=== PATIENT | female | born 1960 | race Native Hawaiian/Other Pacific Islander ===

== ENCOUNTER 2016-08-19 10:02 | Outpatient (CLI) | payer OTHER ==
[~2016-08-19 10:02] MED LIST: LABETALOL200 MG PO; LISI20TA24 PO; SIMV40TA57 PO
== END 2016-08-19 23:02 | disposition home or self-care (01) ==
LOC: MAMMO 10:02
DX: Z12.31 Encounter for screening mammogram for malignant neoplasm of breast (principal)
CPT/HCPCS: G0202-TC

== ENCOUNTER 2019-04-14 12:16 | Outpatient (CLI) | payer OTHER ==
[2019-04-14 12:58] LABS: PLATELET COUNT 244 K/uL (152-353)
[2019-04-14 13:13] LABS: POTASSIUM 4.3 mmol/L (3.6-5.2)
== END 2019-04-14 23:01 | disposition home or self-care (01) ==
LOC: LABW 12:16
PROVIDERS: Internal Medicine Cardiovascular Disease
DX: Z79.899 Other long term (current) drug therapy (principal)
CPT/HCPCS: 36415; 80053; 80061; 83880; 85027

== ENCOUNTER 2019-05-13 07:40 | Outpatient (CLI) | payer OTHER | END 2019-05-13 20:39 | disposition home or self-care (01) | LOC: NM 07:40 | DX: I10 Essential (primary) hypertension (principal); R07.9 Chest pain, unspecified | CPT/HCPCS: 93306 ==

== ENCOUNTER 2019-05-19 07:50 | Outpatient (CLI) | payer OTHER ==
[~2019-05-19] VITALS: Ht 160 cm; Wt 77.1 kg
== END 2019-05-19 21:14 | disposition home or self-care (01) ==
LOC: NM 07:50
DX: R07.89 Other chest pain (principal); I10 Essential (primary) hypertension; E11.9 Type 2 diabetes mellitus without complications
CPT/HCPCS: 93306; A9500; J2785

== ENCOUNTER 2019-08-02 10:08 | Outpatient (CLI) | payer BC | END 2019-08-02 19:31 | disposition home or self-care (01) | LOC: MRI 10:08 | DX: G63 Polyneuropathy in diseases classified elsewhere (principal) ==

== ENCOUNTER 2019-09-06 14:18 | Outpatient (CLI) | payer BC | END 2019-09-06 19:22 | disposition home or self-care (01) | LOC: RAD 14:18 | DX: M54.16 Radiculopathy, lumbar region (principal) ==

== ENCOUNTER 2021-02-04 01:45 | Inpatient (IN) | payer BC ==
[2021-02-04] VITALS (12 sets, daily range): BP systolic 116–150; BP diastolic 55–81; TEMP 97.7–100.4; Ht 160 cm; Wt 81.0 kg
[~2021-02-04] VITALS: Ht 160 cm; Wt 81.0 kg
[2021-02-04 02:11] LABS: PLATELET COUNT 211 K/uL (152-353)
[2021-02-04 02:22] LABS: POTASSIUM 4.4 mmol/L (3.6-5.2); SODIUM 132 mmol/L (136-145)
[2021-02-04 02:36] LABS: PARTIAL THROMBOPLASTIN TIME 28.3 SECONDS (24.5-33.6)
--- NOTE | 2021-02-04 04:34 | NUR ---
PT. ARRIVED TO ROOM 1124 VIA STRETCHER FROM THE ER ON 8L/M SIMPLE MASK. ADMITTING DIAGNOSIS:COVID PNEUMONIA WTH HYPOXEMIA. PT. IS ALERT AND ORIENTED TIMES FOUR AND REACTIVE TO VERBAL STIMULI. PT. IS CURRENTLY ON 2L/M NC AFTER SATTING 99%. PT. IS SITTING UP IN A HIGH-FOWLERS POSITION WITH SIDE RAILS UP TIMES TWO WITH BED IN LOWEST POSITION. CALL LIGHT WITHIN REACH. ASSESSMENT PART 1 IS COMPLETE AND HOME MEDS PUT IN SYSTEM FOR MD TO REVIEW AND CONFIRM FOR USAGE. NO S/S OF ACUTE DISTRESS NOTED OR EXPRESSED BY PT. ORDERS REVIEWED AND SENT IN TO [facility] TO PROFILE INTO SYSTEM.
[2021-02-04] MEDS ORDERED: GRALISE600 MG PO (05:13)
[2021-02-04] MEDS ORDERED: MELOXICAM7.5 MG PO (05:14)
[2021-02-04] MEDS ORDERED: LOSA50TA PO (05:15)
[2021-02-04] MEDS ORDERED: HYDR25TA60 PO (05:16)
[2021-02-04] MEDS ORDERED: LABETALOL200 MG PO (05:17)
[2021-02-04] MEDS ORDERED: METF500T PO (05:17)
[2021-02-04] MEDS ORDERED: CITALOPRAM20 MG PO (05:19)
[2021-02-04] MEDS ORDERED: LIPITOR20 MG PO (05:19)
[2021-02-04] MEDS ORDERED: MELATONIN MAXIMU5 MG PO (05:21)
--- NOTE | 2021-02-04 05:33 | NUR ---
PATIENT ATTOVED VIA STRETHCHED. RESPIRTORY AT BEDSIDE. PATIENT CHANGED FROM SIMPLE MASK TO NC ON 2L. PATIENT DENIES ANY PAIN AND REPORTS DIARRHEA FOR THE PAST TWO DAYS. PATIENT IS ABLE TO AMBULATE TO BATHROOM. PATIEN LUNG SOUNDS ARE CLEAR EXCEPT FOR SOME DINISHMENT AT THE BASES
--- NOTE | 2021-02-04 14:06 | NUR ---
PHARMACY CALLED TO VERIFY HOME MEDS MD NOTIFED NEW ORDERS GIVEN TO D/C SIMVASTATIN.
--- NOTE | 2021-02-04 21:15 | NUR ---
PM ASSESSMENT COMPLETE AT THIS TIME. PM MEDS GIVEN AT THIS TIME. PT. TOLERATED WELL. PULMICORT AND COMBIVENT UTILIZED ALSO BY PT. AT THIS TIME. PT. GOT UP 2000 ON THE INCENTIVE SPIROMETER WITH ALL 10 INSPIRATIONS WITNESSED BY GAUGER CHIEF. PT. TOLERATING 2L/M NC AT THIS TIME WITH A SPO2 LEVEL OF 96% AND RESPIRATIONS 18. NO S/S OF ACUTE DISTRESS NOTED OR EXPRESSED BY PT. PT. SITTING UP IN BED IN A LOW-FOWLERS POSITION WITH SIDE RAILS UP TIMES TWO WITH BED IN LOWEST POSITON WITH CALL LIGHT WITHIN REACH. TELEMETRY, PULSE OXIMETRY AND IV ALL INTACT AND WORKING EFFECIENTLY. PT. BS WAS 271 AND COVERED WITH 4 U OF NOVOLOG. PT. DENIES ANY PAIN OR NEEDS AT THIS TIME. WILL MONITOR FOR ANY ACUTE CHANGES.
[2021-02-05] VITALS: BP 110/61; TEMP 97.7
[2021-02-05 04:00] VITALS: BP 111/54; TEMP 97.7
[2021-02-05 06:07] LABS: POTASSIUM 4.6 mmol/L (3.6-5.2)
[2021-02-05 06:08] LABS: PLATELET COUNT 215 K/uL (152-353)
[2021-02-05 08:00] VITALS: BP 119/60; TEMP 97.8
[2021-02-05 12:00] VITALS: BP 107/63; TEMP 98.2
[2021-02-05 20:00] VITALS: BP 124/53; TEMP 101.2
--- NOTE | 2021-02-05 21:19 | NUR ---
SHIFT ASSESSMENT COMPLETED. PATIENT NOTED ON 6 LPM VIA NC WITH SPO2 IN THE MID 80'S. RT IS AT THE BEDSIDE. PATIENT CHANGED TO VENTI MASK 50% AT 15LPM WITH SPO2 91%. IV PATENT AND INTACT INFUSING NS AT 50ML
[2021-02-06] VITALS (12 sets, daily range): BP systolic 100–147; BP diastolic 41–71; TEMP 97.7–98.4
--- NOTE | 2021-02-06 07:18 | NUR ---
Patient assisted twice throughout the night to the use the bathroom. Patient has very unsteady gait and generalized weakness. Patient gets very excerted and desats to 60% and usually take a few minutes to recover in the high 90's. Patient instructed to call for assistance when using the bathroom. Patient provided a bedside commode for safety.
--- NOTE | 2021-02-06 10:13 | NUR ---
PT HIGH FOWLERS POSITION WITH VENTI-MASK @10LPM. O2 SATS <90 WITH O2 IN USE. NAD NOTED. PT AMBULATES TO BEDSIDE COMMODE WITHOUT ASSISTANCE AND HAS STEADY GAIT, SUPERVISION RECOMMENDED. AM MEDS ADMINISTERED ORDERED AND PT TOLERATED WELL. PT ALERT AND DENIES ANY "DIZZINESS" WHEN AMBULATING TO BEDSIDE COMMODE. IV SITE TO RIGHT WRIST INTACT AND NO SWELLING OR REDNESS NOTED AND FLUSHES WITH NO DIFFICULTY. PTS APPETITE ADEQUATE. DENIES ANY PAIN OR DISCOMFORT. PT ED ON USING O2 WHEN UP AT BEDSIDE COMMODE TO ELIVIATE ANY RESP. DISTRESS.
--- NOTE | 2021-02-06 14:27 | NUR ---
PER DR HENDERSON PT WILL BE TRANSFERRING TO ICU FOR ONE ON ONE CONTINUOUS MONITORING OF O2 SATS. PT CONTINUES WITH 02 @ 10LPN VIA VENTI-MASK. PT AMBULATES TO BEDSIDE COMMODE WITH SUPERVISION TO ENSURE O2 IS ON AT ALL TIMES. PT DENIES ANY PAIN OR DISCOMFORT. PA=501 WITH 6U OF NOVOLOG COVERAGE.
--- NOTE | 2021-02-06 14:45 | NUR ---
REC'D PT FROM [facility] VIA WC AT THIS TIME. PT NOTED TO HAVE VENTI-MASK INTACT AT TIME OF TRANSFER. REPORT REC'D FROM [facility]. PT ASSISTED TO BED 1 IN ICU. PT CONNECTED TO TEL AND PULSE OX. PT REQUESTED TO USE BSC AND WAS ASSISTED TO IT. WHILE USING BSC PT'S SATS NOTED TO DECREASE TO 76 WITH HR OF 86. PT HAD REMIVED HER MASK AT THIS TIME. EXPLAINED TO HER SHE MUST NOT REMOVE HER OXYGEN AT ANY TIME. RESP AT BS AND PT ASSISTED BACK TO BED AND HIGH FLOW PLACED ON PT PER RESP AT THIS TIME. PT'S SATS NOTED TO RECOVER AND INCREASED TO 94-95% ON HIGH FLOW. WILL CONT TO MONITOR.
--- NOTE | 2021-02-06 15:02 | NUR ---
PT TRANSPORTED TO ICU VIA WHEELCHAIR AT 1445. REPORT GIVEN TO CORNELIA YODER.
--- NOTE | 2021-02-06 18:44 | NUR ---
PT SITTING UP IN BED EATING SUPPER. PT HAS RESTED WELL SINCE TRANSFERING TO ICU. REMAINS ON HIGH FLOW O2 AT 76% AT 40L. SPOKE WITH PT'S EARLIER AND BREIF UPDATE GIVEN. INFOMRED PT HE HAD CALLED AND SHE NOW HAS CELLPHONE AT BS
--- NOTE | 2021-02-06 19:20 | NUR ---
RESTING IN BED WITH EYES CLOSED, NO S/S OF PAIN OR DISTRESS NOTED, RESP RATE NONLABORED, HIGH FLOW NC IN USE FIO2 76% AND 40 LPM WITH O2 SAT 93-96%, 20G IV LOCK INTACT TO R WRIST WITH NO PROBLEMS NOTED TO SITE, SAND WHEELER IN USE WITH REGULAR RATE IN 70s, VITALS BEING MONITORED, WILL MONITOR CLOSELY, RAILS UP, BED IN LOW POISITION, CALL LIGHT IN REACH.
--- NOTE | 2021-02-06 21:14 | NUR ---
PT AROUSES TO FUELS SALES REPRESENTATIVE CALLING HER NAME AND DENIES ANY PROBLEMS AT THIS TIME, NO S/S OF DISTRESS NOTED. GAVE NIGHTLY MEDICATIONS, PT TOOK PO MEDS PER SELF WITH NO PROBLEMS. ENCOURAGED TO CALL NEEDED, RAILS UP, BED IN LOW POSITION, CALL LIGHT IN REACH.
--- NOTE | 2021-02-06 22:44 | NUR ---
RESTING IN POSITION OF COMFORT WITH EYES CLOSED, NO S/S OF PAIN OR DISTRESS NOTED, RESP RATE NONLABORED, O2 IN USE VIA HIGH FLOW NC WITH SAT OF 95%, IV LOCK INTACT TO R HAND, VITALS BEING MONITORED, RESIDENTIAL BUILDER IN USE WITH REGULAR RATE IN 60s. WILL MONITOR CLOSELY, RAILS UP, BED IN LOW POSITION, CALL LIGHT IN REACH.
[2021-02-07] VITALS (23 sets, daily range): BP systolic 107–160; BP diastolic 43–74; TEMP 64–98.8
--- NOTE | 2021-02-07 00:10 | NUR ---
PT AROUSES AND IS ORIENTED [employer] MAKER IS AT BEDSIDE, DENIES ANY PAIN/PROBLEMS, NO S/S OF ACUTE DISTRESS NOTED, RESP RATE 24 NONLABORED, O2 IN USE VIA HIGH FLOW NC FIO2 76% AND 40LPM WITH O2 SAT OF 96%, CARDIAC MONITIR IN USE WITH RATE 60-70s, 20G IV LOCK INTACT TO R WRIST WITH NO PROBLEMS NOTED TO SITE, VITALS BEING MONITORED. GAVE 2400 COMBIVENT INHALER PER ORDER PT TOLERATED WELL WITH SOME COUGHING NOTED AFTER. WILL MONITOR CLOSELY, RAILS UP, BED IN LOW POSITION, ENCOURAGED TO CALL NEEDED.
--- NOTE | 2021-02-07 02:15 | NUR ---
RESTING WITH EYES CLOSED IN POSITION OF COMFORT ON L SIDE, NO S/S OF PAIN OR DISTRESS NOTED, VITALS BEING MONITORED, O2 IN USE VIA HIGH FLOW NC, WILL MONITOR CLOSELY, RAILS UP, BED IN LOW POSITION.
--- NOTE | 2021-02-07 04:00 | NUR ---
PY AWAKE AND ORIENTED SITTING UP IN BED WITH NO S/S OF ACUTE DISTRESS NOTED, RESP RATE 22 NONLABORED, O2 VIA HIGH FLOW NC WITH FIO2 76% AND 40LPM, O2 SAT 94%-96%, 20G IV LOCK INTACT TO R WRIST WITH NO PROBLEMS NOTED TO SITE, VITALS BEING MONITORED/STABLE. ASSISTED PT TO AND FROM BSC DUE TO GENERALIZED WEAKNESS(STAND BY ASSIST), GAIT STEADY. PT URINATED 900ML CLEAR YELLOW URINE. BACK IN BED AT THIS TIME, NOTE PT DID HAVE SOME SOB WITH ACTIVITY BUT QUICKLY IMPROVED WITHIN A MINUTE OR TWO. WILL MONITOR CLOSELY, RAILS UP X3, BED IN LOW POSITION, ENCOURAGED TO CALL NEEDED.
[2021-02-07 05:32] LABS: PLATELET COUNT 249 K/uL (152-353)
[2021-02-07 05:51] LABS: POTASSIUM 4.6 mmol/L (3.6-5.2)
--- NOTE | 2021-02-07 06:02 | NUR ---
RESTING IN BED WITH EYES CLOSED, NO S/S OF PAIN OR DISTRESS NOTED, RESP RATE NONLABORED, O2 IN USE VIA HIGH FLOW NC WITH O2 SAT OF 97%, 20G IV LOCK INTACT TO R WRIST, HEATER ROOM HELPER IN USE RATE OF 60, VITALS BEING MONITORED, WILL MONITOR CLOSELY, RAILS UP X3, BED IN LOW POSITION.
--- NOTE | 2021-02-07 07:26 | NUR ---
PT REMOVED HIGHFLOW DURING SLEEP, SATS DECREASED 84%. PT AROUSES TO VERBAL, INSTRUCTED TO APPLY HIGHFLOW, PT STATES SHE DONT KNOW WHY SHE DID THAT.
--- NOTE | 2021-02-07 08:40 | NUR ---
SPOKE WITH DR CAMPBELL CONCERNING PT, UPDATE GIVEN. HELD AM BP MEDS.
--- NOTE | 2021-02-07 09:00 | NUR ---
PT EATING BREAKFAST AT THIS TIME, SATS AT 90%.
--- NOTE | 2021-02-07 09:27 | NUR ---
PT GAVE VERBAL CONSENT FOR INFORMATION TO BE GIVEN TO FAMILY, PT STATES THAT SHE WILL GIVEN FAMILY PASSWORD. FAMILY INCLUDES GARLAND AND SON BANDAR.
--- NOTE | 2021-02-07 09:30 | NUR ---
PT ON PHONE WITH , SHE STATES THAT SHE GAVE PASSWORD TO HIM
--- NOTE | 2021-02-07 10:00 | NUR ---
PT AROUSES TO VERBAL, INSTRUCTEDD PT ON IMPORTANCE OF USING IS Q1, VOICED UNDERSTANDING
--- NOTE | 2021-02-07 11:00 | NUR ---
PT RESTING AT THIS TIME, NO S/S OF DISTRESS NOTED
--- NOTE | 2021-02-07 12:32 | NUR ---
PT GIVEN SUPPLIES TO BRUSH HAIR AND TEETH
--- NOTE | 2021-02-07 13:24 | NUR ---
TALKING ON THE PHONE WITHKEILY
--- NOTE | 2021-02-07 14:50 | NUR ---
USING IS AT THIS TIME
--- NOTE | 2021-02-07 16:00 | NUR ---
RESTING AT THIS TIME.
--- NOTE | 2021-02-07 18:00 | NUR ---
NO C/O AT PRESENT. PTS GIVEN UPDATE ON PTS STATUS. USING INCENT MACEY AT PRESENT.
[2021-02-08] VITALS (22 sets, daily range): BP systolic 106–163; BP diastolic 55–90; TEMP 98–99.1
--- NOTE | 2021-02-08 | NUR ---
PY CONTINUES TO REST WITH EYES CLOSED. USING HIGH FLOW OXYGEN.
--- NOTE | 2021-02-08 03:04 | NUR ---
PT UOB WITH MINIMAL ASSISTANCE TO USE BSC. VOIDED 1000 ML OF URINE. BACK TO BED AND 02 SATS REMAINED AT 95 PERCENT.
--- NOTE | 2021-02-08 03:56 | NUR ---
FEBRUARY 07, 2021. PM ASSESSMENT COMPLETED. PT ATE HER SALAD AND DRANK 40 ML OF SODA. PT HAS NO COMPLAINTS OF PAIN OR DISCOMFORT. PT USING HIGH FLOW OXYGEN AT 40 PERCENT 02 AND 75L. 21:00 PM PATIENT MEDICATIONS GIVEN. BLOOD SUGAR IS 105. VITAL SIGNS STABLE. PT RESTING WITH EYES CLOSED.
--- NOTE | 2021-02-08 04:22 | NUR ---
CONTINUES TO REST AND USE HIGH FLOW OXYGEN ORDERED.
[2021-02-08 06:31] LABS: PLATELET COUNT 297 K/uL (152-353)
--- NOTE | 2021-02-08 06:41 | NUR ---
0620 LAB AT BEDSIDE, DRAWING BLOOD
--- NOTE | 2021-02-08 06:52 | NUR ---
LABETALOL 25 WAS NOT GIVEN LAST PM. THIS ORDER WAS DISCONTINUED. LOPRESSOR WAS HELD BECAUSE OF HR IN THE 50'S AND BP BEING MONITORING.
[2021-02-08 07:02] LABS: POTASSIUM 4.8 mmol/L (3.6-5.2)
--- NOTE | 2021-02-08 09:09 | NUR ---
02/08/2021 0900 PT GARLAND CALLED TO ICU TO CHECK ON .TOLD HIM PT STATES SHE IS FEELING GOOD THIS MORNING ASKING ABOUT BREAKFAST.WEARING BIPAP MAINTANING SAT AT 96 PERCENT.NAD NOTED.
--- NOTE | 2021-02-08 10:06 | NUR ---
02/08/21 1005 RESTING QUEITLY HF POSTITION RESP EVEN NONLABORED NADDNOTED.OXYGEN SATURATION 93 PERCENT.
--- NOTE | 2021-02-08 11:27 | NUR ---
02/08/21 1100 PT AWAKE USING IS 1500 TOLERATING WELL OXYGEN SATURATION 92 PERCENT. 02/08/2021 1130 IN TO SPEAK WITH PLAN OF CARE.CALL LIGHT WITHIN REACH.CC
--- NOTE | 2021-02-08 14:00 | NUR ---
ASSISTED PT UP TO BSC. URINE VOID AND LOOSE BM.
--- NOTE | 2021-02-08 14:19 | NUR ---
02/08/21 1420 AWAKE TALKING ON PHONE WITH FAMILY OXYGEN SATURATION 93 PERCENT.
--- NOTE | 2021-02-08 16:52 | NUR ---
02/08/21 1650 OXYGEN SATURATION LOW 80'S IS GIVEN AND USED TO 1400 COUGHING STRONG COUGH.POSTIONED TO HF.OXYGEN RECHECKED AFTER CHANGING FINGERS.OXYGEN REMAINED IN 70-80.RESPIRATORY NOTIFED AND CAME IN.POSTIONED TO RT SIDE PT COUGHING WITH STRONG COUGH.HIGH FLOW INCREASED FROM 76 PERCENT TO 100 PERCENT.45 LITERS.CC
--- NOTE | 2021-02-08 17:23 | NUR ---
02/08/21 1725 IS USED IS UP TO 14OO COUGHING SAT INCREASE FROM 88 TO 92 PERCENT.CC
--- NOTE | 2021-02-08 17:29 | NUR ---
PT FIO2 INCREASED TO 100% AND LITER FLOW UP TO 45LNC. DUE TO PT SPO2 DROPPING IN THE 80s. SPO2 NOW IS IN MID TO HIGH 95-97%.
--- NOTE | 2021-02-08 18:22 | NUR ---
DR JAQUEZ GIVEN UPDATE ON PT STATUS, REPORTED THAT PT WAS HAVING SOME ANXIETY, INCREASE IN 02 100%.
--- NOTE | 2021-02-08 21:48 | NUR ---
INCREASED LITER FLOW TO 50 L/M. SPO2 99%
--- NOTE | 2021-02-08 23:07 | NUR ---
PT VOIDED IN BED. NEW ORDER RECEIVED FOR NO CATHETAR. PT WITH INCREASED HEART RATE AND RESPIRATIONS. 16 CHINESE NO INSERTED USING STERILE TECHNIQUE. PER JEANA BARRETT RN. PT IMMEDIATELY HAD YELLOW URINE RETURN. PT WAS GIVEN TYLENOL 650 MG PO FOR ELEVATED TEMPERATURE. WILL MONITOR.
--- NOTE | 2021-02-08 23:58 | NUR ---
PT HAD EPISODES OF DECREASE 02 SATS. RESP AT BEDSIDE. INCREASED O2 T0 60 PERCENT. NRM APPLIED.
[2021-02-09] VITALS (23 sets, daily range): BP systolic 93–180; BP diastolic 40–91; TEMP 99.8–101
--- NOTE | 2021-02-09 01:24 | NUR ---
TEMPERATURE RECHECK 101.9. BLOOD CULTURES X 2 ORDERED.
--- NOTE | 2021-02-09 04:14 | NUR ---
PATIENT REPOSITIONED UP IN THE BED AND ON TO HER LEFT SIDE X4 PERSON MAX ASSIST. SPO2 AT 94%.
--- NOTE | 2021-02-09 04:54 | NUR ---
PT REPOSITIONED TO HER LEFT SIDE. O2 SATS VARY FROM 88 TO 93 PERCENT. TEMP WAS RECHECKED 101.0 AX.
[2021-02-09 05:19] LABS: PLATELET COUNT 271 K/uL (152-353)
--- NOTE | 2021-02-09 05:26 | NUR ---
RECHECKED TEMP 99.1.
--- NOTE | 2021-02-09 06:00 | NUR ---
PATIENT NOTED WITH A LOW BLOOD PRESSURE OF 83/40 ON THE MONITOR. MANUAL BLOOD PRESSURE READING 82/38. CALLED AND HE GAVE ORDER FOR A 1 LITER BOLUS OF NS.
--- NOTE | 2021-02-09 06:12 | NUR ---
IV 20G TO THE RIGHT WRIST FLUSHED AND IT WAS NOTED INFILTRATED. IV REMOVED WITH TIP INTACT. IV 20G TO THE LEFT HAND X 1 ATTEMPT STARTED W/O DIFFICULTY.
--- NOTE | 2021-02-09 06:24 | NUR ---
NS BOLUS STARTED AT THIS TIME.
--- NOTE | 2021-02-09 07:14 | NUR ---
PATIENTS CURRENT BLOOD PRESSURE READING 111/45 WITH MAP 65.
--- NOTE | 2021-02-09 16:32 | NUR ---
DR CAMPBELL IN ICU AT THIS TIME. PT RESTING IN BED IN LOW FOWLERS POSITION NO ACUTE DISTRESS NOTED. ABG RESULTS REPORTED TO MD PER RESP
--- NOTE | 2021-02-09 16:45 | NUR ---
DR CAMPBELL SPOKE WITH SON AND PT ABOUT INTUBATION AND BOTH AGRED AND VERBALZIED UNDERSTANDING. 1710 20G RT AC PLACED 1718 DEFIB PADS PLACCED ON PT 1721 16 FR NGT PLACED RT NARE 1737 VERSED 5MG GIVEN IV PER DR CAMPBELL 1740 YONG 70MG IVP GIVEN PER 174 BOUGIE ATEMPTED PER 174 7.5ET TUBE PLACED PER DR CAMPBELL 23 AT LIPLINE 1745 VERSED DRIP STARTED AT 2ML 174 DIPRIVAN DRIP SATRTED AT THIS TIME PER PROTOCOL 182 AKHIL DDRIP INCREASED TO 20MCG 182 ORDERS REC'D FOR PICC LINE PLACMENT OMAR LOCKE INFORMED AND AT BS
--- NOTE | 2021-02-09 19:42 | NUR ---
SHIFT ASSESSMENT COMPLETED AT THIS TIME. PATIENT IS RESTING QUIELTY ON THE VENT WITH NO ACUTE DISTRESS NOTED. FIO2 100% VIA VENT. ELIDA AT THE BEDSIDE PLACING PICC LINE.
--- NOTE | 2021-02-09 19:47 | NUR ---
X-RAY AT THE BEDSIDE DOING CHEST X-RAY FOR PICC LINE PLACEMENT.
--- NOTE | 2021-02-09 20:10 | NUR ---
RESPIRATORY DECREASED FIO2 TO 95%, O2 SAT IN 90s, NO ACUTE DISTRESS NOTED, RESP RATE NONLABORED, REMAINS ON VENT, 20G IV INTACT TO R AC AND 20G IV INTACT TO L HAND, PICC INTACT TO L UPPER ARM, NO PATENT, VITALS BEING MONITORED, HANDS AND FEET ELEVATED ON PILLOWS DUE TO EDEMA, RAILS UP, BED IN LOW POSITION, CALL LIGHT IN REACH.
[2021-02-10] VITALS (65 sets, daily range): BP systolic 82–145; BP diastolic 41–513; TEMP 97–104.2
--- NOTE | 2021-02-10 00:45 | NUR ---
RESP DECREASED FIO2 TO 90%, O2 SAT 98%. PT RESTING WITH EYES CLOSED, NO S/S OF PAIN OR DISTRESS NOTED, RESP RATE NONLABORED, REMAINS ON VENT 23 AT LIP, NG TUBE INTACT TO R NARE WITH LOW INTERMITTEN SUCTION, PICC INTACT TO L UPPER ARM, 16F NO PATENT, 20G IV INTACT TO R AC AND L HAND, VITALS BEING MONITORED, FEET AND HANDS ELEVATED ON PILLOWS. RAILS UP, BED IN LOW POSITION.
--- NOTE | 2021-02-10 01:07 | NUR ---
VENT FIO2 DECREASED TO 85% BY RESPIRATORY. O2 SAT REMAINS IN 90s. NO S/S OF ACUTE DISTRESS OR RESP DISTRESS AT THIS TIME, BOTH IV SITES INTACT, NO PATENT, NG TUBE INTACT TO R NARE LIS, PICC INTACT TO L UPPER ARM, WILL MONITOR CLOSELY, RAILS UP, BED IN LOW POSITION.
--- NOTE | 2021-02-10 01:33 | NUR ---
GAVE TYLENOL 1000MG IV PRN FOR AX TEMP OF 101.6 AT THIS TIME. PT ONLY HAS SHEET ON HER. NO ACUTE DISTRESS NOTE.
--- NOTE | 2021-02-10 02:30 | NUR ---
RECHECK OF TEMP SINCE TYLENOL GIVEN. AX TEMP IS NOW 100.2 , NO REACTIONS NOTED. RESTING WITH EYES CLOSED, NO DISTRESS NOTED.
--- NOTE | 2021-02-10 05:25 | NUR ---
0508- DECREASED FIO2 TO 80% satS 100% AND MAINTAINING @ THIS TIME.
--- NOTE | 2021-02-10 06:00 | NUR ---
DIPRIVAN DRIP INCREASED TO 40MCG/KG/MIN DUE TO PT BREATHING OVER VENT AND MOVING. WILL MONITOR CLOSELY.
[2021-02-10 06:26] LABS: PLATELET COUNT 163 K/uL (152-353)
[2021-02-10 06:45] LABS: POTASSIUM 3.7 mmol/L (3.6-5.2)
--- NOTE | 2021-02-10 06:57 | NUR ---
RESTNG WITH EYES CLOSED, NO S/S OF PAIN OR DISTRESS NOTED, RESP RATE 26 NONLABORED, O2 SAT 98%, PLSQL DEVELOPER IN USE WITH RATE OF 93, FEET AND HANDS ELEVATED ON PILLOWS HOB IN SEMI-AREVALO'S POSITION, WILL MONITOR CLOSELY,RAILS UP, BED IN LOW POSITION.
--- NOTE | 2021-02-10 08:23 | NUR ---
DIPRIVAN INCREASED TO 45 MCG/KG/MIN BY DL FERNANDO RN
--- NOTE | 2021-02-10 08:32 | NUR ---
VERSED INCREASED TO 0.09 MG/KG/HR BY DL FERNANDO RN
--- NOTE | 2021-02-10 09:41 | NUR ---
VERSED INCREASED TO 0.1MCG DUE TO RR 42, HR 111; DIPRIVAN INCREASED 45MCG/KG 0945 RESP AT BS RATE DECREASED TO 20 ON VENT 0947 DIPRIVAN INCRASED TO 50MCG/KG 0949 VERSED INCREASED TO 0.15MG/KG 0951 VERSED DECREASED TO 0.1MG/KG
--- NOTE | 2021-02-10 10:10 | NUR ---
PT'S SON, BANDAR LARIOS, CALLED FOR AN UPDATE ON HIS MOTHER. UPDATE GIVEN ALL QUESTIONS ANSWERED AT THIS TIME.
--- NOTE | 2021-02-10 10:35 | NUR ---
RESP AT BS OBTAINING ABG
--- NOTE | 2021-02-10 11:25 | NUR ---
PT'S HANDS BILAT NOTED TO BE COOL TO TOUCH AND PALE IN COLOR. BILAT FEET ALSO NOTED TO BE COOL TO TOUCH AND GREAT TOE ON LEFT FOOT NOTED TO HAVE DARK AREAS. PEDAL PULSES POSITIVE TO BOTH LOWER EXT. DR CAMPBELL AWARE AMD AT BS AT THIS TIME. PT'S LEFT FOOT NOTED TO BE TURNED INWARD AT THIS TIME. PT'S FACE FLUSHED AND WARRM TO TOUCH. NO TEMP NOTED.
--- NOTE | 2021-02-10 11:30 | NUR ---
DR CAMPBELL IN ICU AT THIS TIME. INFORMED HER PT'S RESP REMAINED 34-40 DESPITED ADJSUTMENTS TO VENT SETTINGS PER RESP. PT'S SEDATION MEDS BOTH INCREASED PER PROTOCOL WITH NO CHANGES NOTED TO RESP. NEW ORDERS REC'D TO GIVE MORPHINE 1MG IV AT THIS TIME.
--- NOTE | 2021-02-10 12:49 | NUR ---
PT NOTED TO BE FLUSED TO FACE AND CHEST AND WARM TO TOUCH. TEMP TAKEN AX AND NTOED TO BE 103.0 AX. BED LINENS REMOVED AND COOL CLOTHES APPLIED TO HEAD AND BILAT AX . DR CAMPBELL INFORMED. 1255 DR CAMPBELL AT BS
--- NOTE | 2021-02-10 13:33 | NUR ---
0845- PT IS AGITATED AND FIGHTING WITH VENT. RR BETWEEN 35-40. HR 114, SPO2 BETWEEN 89-92%. RT PLACED PT IN SIMV MODE TO HELP WITH PT TOLERABILITY WITH PS-10. ALL OTHER SETTINGS ARE THE SAME. WILL CONTINUE TO MONITOR PT. 0920-PT RR IS AT 45, BREATHING OVER VENT QUITE A BIT. RT DECREASED VENT RATE TO 20.
--- NOTE | 2021-02-10 13:45 | NUR ---
TEMP AX NOTED TO BE 104.4. AWAITING FOR PRN IV TYELENOL TO TAKE EFFECT WILL CONT TO ACCESS 1415 TEMP CHECKCED AND NOTED TO BE 102.4 AX COOL CLOTHES STILL INTACT WILL CONT TO MONITOR.
--- NOTE | 2021-02-10 14:21 | NUR ---
TEMP 102.7AX
--- NOTE | 2021-02-10 14:50 | NUR ---
BP 93/44 HR 91, RR 18, O2 AT 97%. PPT PLACED IN [place] POSITION 1457 BP 82/41 HR 90 O2 95% DR CAMPBELL NOTIFIED OF DECREASE IN BP 1500 BP92/42 HR 89 02 93% 1503 DIPRIVAN DECREASED TO 30 1505 VERSED 0.08MCG/KG O2 DECREASED 89%; RESP AT BS 1510 DR CAMPBELL AT BS 1512 BP 101/44 HR 89 O2 92% RR 30
--- NOTE | 2021-02-10 17:19 | NUR ---
1450-INCREASED FIO2 TO 100% DUE TO SPO2 AT 86-88%. PT HAS LOW BP. 1700-DECREASED FIO2 TO 90% SPO2 AT 91%
--- NOTE | 2021-02-10 19:45 | NUR ---
SHIFT ASSESSMET COMPLETED. PATIENT IS RESTING QUIELTY ON THE VENT WITH THE FOLLOWING SETTINGS TV 500ML, PRESSURE SUPPORT 10, RATE 10, FIO2 100%. NS AT 125 ML/HR, DIPIRVAN 30 MCH/KG/HR, VERSED 0.08MCG MCG/KG/HR. PICC LINE TO THE LEFT UPPER ARM IS PATENT AND INTACT. 20G TO THE LEFT HAND IS INFUSING W/O DIFFICULTY. 16F.NO IS INTACT TO BSD. BED IS LOCKED IN LOW POSITION, SIDE RAILS UP X2.
--- NOTE | 2021-02-10 21:15 | NUR ---
PATIENT REPOSITIONED UP IN THE BED W/O DIFFICULTY.
--- NOTE | 2021-02-10 22:09 | NUR ---
PATIENT REPOSITIONED OF HER BACK AND ELEVATED BOTH LOWER EXTREMITIES. TEMP 97.9 AXILLARY. SPO2 98%
[2021-02-11] VITALS (66 sets, daily range): BP systolic 19–179; BP diastolic 43–90; TEMP 97–100
--- NOTE | 2021-02-11 02:15 | NUR ---
ORAL CARE PROVIDED. PATIENT REPOSITIONED ON TO HER LEFT SIDE.
--- NOTE | 2021-02-11 03:20 | NUR ---
ORAL CARE PROVIDED.
--- NOTE | 2021-02-11 04:06 | NUR ---
PATIENT NOTED COUGHING OVER THE VENT WITH O2 SATS 77%. PATIENT BROUGHT UP TO SUPINE POSITION AND 100% 02 (2 MINUTES) ON THE VENT AND SUCTION HER ORAL CAVITY AROUND ET TUBE AND THICK SECRETIONS NOTED. PATIENT ALSO IN LINE SUCTIONED TWICE WITH SOME CLEAR SECRETIONS NOTED ON RETURN. PATIENTS 02 SATS INCREASED TO 91% AND AFTER SEVERAL MINUTES 02 SATS INCREASED TO 99%.
--- NOTE | 2021-02-11 05:15 | NUR ---
PATIENT MONITOR GOING OFF AND NOTED HER SATS DECREASED TO 79% AND RR INCREASING TO 42. PROPOFOL INCREASED TO 50 MCG. PATIENT STILL NOTED CLAMPING DOWN ON TUBE. RT AT THE BEDSIDE GIVING 100% O2 VIA VENTILLATOR WITH NO RESPONSE.
--- NOTE | 2021-02-11 05:20 | NUR ---
CALLED IN THE ER TO GET ORDER FOR VECURONIUM. ORDER PLACED AT THIS TIME.
--- NOTE | 2021-02-11 05:30 | NUR ---
AT THE BEDSIDE.
--- NOTE | 2021-02-11 05:33 | NUR ---
02 SATS 55% WITH RT BAGGING VIA ET TUBE.
--- NOTE | 2021-02-11 05:39 | NUR ---
G REPORTED TO WITH NO ADJUSTMENTS MADE ON VENT SETTINGS.
--- NOTE | 2021-02-11 05:42 | NUR ---
RADIOLOGY AT THE BEDSIDE DOING CHEST X-RAY.
--- NOTE | 2021-02-11 05:42 | NUR ---
VECURONIUM BOLUS 0.08MCG GIVEN PER .
--- NOTE | 2021-02-11 05:47 | NUR ---
RESPIRATORY PLACED PATIENT BACK ON THE VENT
--- NOTE | 2021-02-11 05:50 | NUR ---
02 SATS INCREASED TO 73% WITH VENT SETTING AT FIO2 100%.
--- NOTE | 2021-02-11 05:52 | NUR ---
02 SATS INCREASED TO 80%. VENT SETTINGS: TV 500, RATE 25, PEEP 13, FIO2 100%.
--- NOTE | 2021-02-11 05:55 | NUR ---
02 SAT INCREASED TO 84%.
--- NOTE | 2021-02-11 05:58 | NUR ---
RESPIRATORY AT BEDSIDE FOR ABG
--- NOTE | 2021-02-11 06:00 | NUR ---
02 SAT INCREASED TO 87%. NO VENT CHANGES AT THIS TIME.
--- NOTE | 2021-02-11 06:02 | NUR ---
02 SATS INCREASING TO 89%. NO VENT SETTING CHANGES NOTED AT THIS TIME.
--- NOTE | 2021-02-11 06:03 | NUR ---
SON AT THE BEDSIDE PER .
--- NOTE | 2021-02-11 06:03 | NUR ---
SON AT BEDSIDE PER DR. MTAA VERBAL ORDER, SON IN FULL PPE INCLUDING N-95 MASK AND IS AWARE OF RISKS, , DR TALKING WITH SON ABOUT STATUS OF PT. 96 HEART RATE, RESP RATE 25, O2 SAT 94% AT THIS TIME.
--- NOTE | 2021-02-11 06:05 | NUR ---
02 SAT INCREASED AT 92%.
--- NOTE | 2021-02-11 06:10 | NUR ---
PATIENT BECAME VERY AGITATED,BITING TUBE SPO2 DECREASED TO 45%. VENT SETTINGS TURNED UP WITH NO CHANGE IN SP02, RT TOOK PATIENT OFF OF VENT AND AMBUED, SPO2 STAYED IN THE 50S FOR 10 MINUTES, PLACED BACK ON VENT, 100%, RATE 25 PEEP INCRASED TO 13, SPO2 SLOWLY INCREASED TO 94. THIS WAS OVER A PERIOD OF 1 HOUR
--- NOTE | 2021-02-11 06:30 | NUR ---
SATS AND VITAL SIGNS 104/50, HR-92, RR-25,SPO2 98%.
--- NOTE | 2021-02-11 08:10 | NUR ---
REASSESSED PT'S TRAIN OF FOUR AT THIS TIME. NO TWITCHES NOTED AT PT'S BASELINE OF 20mA. INCREASED TO TO 30mA, STILL NO TWITCHES. VEC NOTED TO BE INFUSING AT THIS TIME VIA IV PUMP.
--- NOTE | 2021-02-11 08:20 | NUR ---
DL FERNANDO RN STOPPED VEC AT THIS TIME AND NOTIFIED . NO FURTHER ORDERS.
--- NOTE | 2021-02-11 08:37 | NUR ---
VERSED INCREASED TO 0.09MG/KG/HR BY DL FERNANDO RN.
--- NOTE | 2021-02-11 09:33 | NUR ---
ORDER GIVEN TO GIVE LEVOPHED IF MAP <65
--- NOTE | 2021-02-11 09:34 | NUR ---
REC'D ORDER FROM DR. CAMPBELL TO GIVE DECADRON 8MG IV AT THIS TIME. TEMP 99.5 AX
--- NOTE | 2021-02-11 09:53 | NUR ---
PHUONG, CAFETERIA CASHIER AT BEDSIDE ABG AND AM LABS OBTAINED AT THIS TIME.
[2021-02-11 09:59] LABS: PLATELET COUNT 100 K/uL (152-353)
--- NOTE | 2021-02-11 09:59 | NUR ---
DR. CAMPBELL AT BEDSIDE.
--- NOTE | 2021-02-11 10:00 | NUR ---
2 AMP BICARB GIVEN PER MD ORDERS.
--- NOTE | 2021-02-11 10:11 | NUR ---
LEVOPHED DRIP RESTARTED PER PROTOCOL BY DL FERNANDO RN.
--- NOTE | 2021-02-11 10:13 | NUR ---
DIPRIVAN INCREASED TO 50 MCG/KG/MIN AT THIS TIME.
[2021-02-11 10:16] LABS: POTASSIUM 3.7 mmol/L (3.6-5.2)
--- NOTE | 2021-02-11 10:18 | NUR ---
LEVOPHED DRIP STOPPED AT THIS TIME BY DL FERNANDO RN. BP 160/75 O2 95%.
--- NOTE | 2021-02-11 10:19 | NUR ---
CAT Z, RT AT BEDSIDE PT'S TV INCREASED TO 550 PEEP INCREASED TO 15
--- NOTE | 2021-02-11 10:26 | NUR ---
BP 101/54 MAP 66
--- NOTE | 2021-02-11 10:34 | NUR ---
LEVOPHED DRIP RESTARTED AT THIS TIME BY DL FERNANDO RN
--- NOTE | 2021-02-11 10:34 | NUR ---
DR. CAMPBELL AT PT'S BEDSIDE AT THIS TIME WITH DL FERNANDO RN. PT'S BP NOTED TO BE 88/42, PT CURRENTLY IN [place], REC'ING NS BOLUS PER MD ORDERS. ORDERS REC'D TO START LEVOPHED DRIP. LEVOPHED DRIP STARTED AT THIS TIME VIA IV PUMP PER PROTOCOL AT 8 MCG/MIN AT THIS TIME BY DL FERNANDO RN.
--- NOTE | 2021-02-11 10:38 | NUR ---
PT'S BP REMAINS LOW AT 90/49, REC'D ORDERS PER TO INCREASE LEVOPHED DRIP TO 12MCG/MINUTE AT THIS TIME. LEVOPHED DRIP INCREASED TO 12MCG/MIN BY DL FERNANDO RN.
--- NOTE | 2021-02-11 10:45 | NUR ---
PT'S BP 174/[address] CAMPBELL AT BEDSIDE REC'D ORDERS TO STOP LEVOPHED DRIP AT THIS TIME. LEVOPHED DRIP STOPPED BY DL FERNANDO RN AT THIS TIME PER MD ORDERS.
--- NOTE | 2021-02-11 10:46 | NUR ---
PT'S BP 106/47 MAP 64
--- NOTE | 2021-02-11 10:47 | NUR ---
BP 95/45 MAP 61
--- NOTE | 2021-02-11 10:50 | NUR ---
RESTARTED LEVOPHED AT THIS TIME PER MD ORDERS. DR. CAMPBELL AT BEDSIDE. LEVOPHED DRIP STARTED BY DL FERNANDO RN AT 8 MCG/MIN VIA IV PUMP.
--- NOTE | 2021-02-11 10:53 | NUR ---
LEVOPHED DECREASED TO 6 MCG/MIN. MAP 108
--- NOTE | 2021-02-11 10:58 | NUR ---
LEVOPHED DECREASED TO 4 MCG/MIN. MAP 97
--- NOTE | 2021-02-11 11:00 | NUR ---
BP 135/60 MAP 85. LEVOPHED AT 4 MCG/MIN
--- NOTE | 2021-02-11 11:10 | NUR ---
1030- PER DR CAMPBELL AT PT BEDSIDE, CHANGED VT TO 550, INCREASED PEEP TO 15. SPO2 AT 95%. IN LINE SX ATTEMPTED AT THIS TIME WELL WITH NO RETURN.
--- NOTE | 2021-02-11 13:19 | NUR ---
PT'S SON BANDAR LARIOS CALLED FOR AN UPDATE ON PT. UPDATE GIVEN BY DL FERNANDO RN AT THIS TIME. ALL QUESTIONS ANSWERED.
--- NOTE | 2021-02-11 15:16 | NUR ---
LEVOPHED DECREASED TO 2MCG/MIN BY DL FERNANDO RN
--- NOTE | 2021-02-11 15:45 | NUR ---
LEVOPHED DECREASED TO 1 MCG/MIN. BP 163/69 MAP 97
--- NOTE | 2021-02-11 16:19 | NUR ---
LEVOPHED STOPPED AT THIS TIME BP 176/70 MAP 110
--- NOTE | 2021-02-11 16:30 | NUR ---
BP 123/52 MAP 86, LEVOPHED RESTARTED AT 2 MCG/MINUTE VIA IV PUMP . GILMA RT AT BEDSIDE PEEP DECREASED TO 13.
--- NOTE | 2021-02-11 17:00 | NUR ---
LEVOPHED DRIP STOPPED AT THIS TIME. BP 179/75 MAP 19
--- NOTE | 2021-02-11 17:30 | NUR ---
DR. CAMPBELL AT BEDSIDE AT THIS TIME. NO NEW ORDERS REC'D.PT BP 135/59 MAP 87. PT STABLE AT THIS TIME.
--- NOTE | 2021-02-11 17:47 | NUR ---
1630- DECREASED PEEP TO 13. SPO2 AT 100% 1730 DECREASED FIO2 TO 90%. SPO2 AT 100%
--- NOTE | 2021-02-11 18:30 | NUR ---
PT REMAINS STABLE AT THIS TIME BP 150/68 MAP 96.
--- NOTE | 2021-02-11 20:16 | NUR ---
SHIFT ASSESSMENT COMPLETED. NO ACUTE DISTRESS NOTED. PATIENT BLOOD PRESSURE STABLE AT 140/70 WITH ROHINI 98.
--- NOTE | 2021-02-11 23:16 | NUR ---
PATIENT REPOSITIONED UP IN THE BED.
[2021-02-12] VITALS (31 sets, daily range): BP systolic 122–197; BP diastolic 56–82; TEMP 97.5–98.7
--- NOTE | 2021-02-12 04:19 | NUR ---
PATIENT BLOOD PRESSURE 145/63, ROHINI 94. NO ACUTE DISTRESS NOTED.
[2021-02-12 04:26] LABS: PLATELET COUNT 102 K/uL (152-353)
[2021-02-12 04:52] LABS: POTASSIUM 3.9 mmol/L (3.6-5.2)
--- NOTE | 2021-02-12 06:24 | NUR ---
PATIENT REPOSITIONED AND SHE WAS NOTED WITH A LARGE YELLOWISH/BROWN FOUL BM. PATIENT CLEANED AND EXCORIATION NOTED IN THE PERINEUM. CALMOSEPTINE APPLIED AT THIS TIME.
--- NOTE | 2021-02-12 08:00 | NUR ---
ET TUBE IN PLACE 7.5 AND 23 AT LIP. SIMV MODE TV 550, PS 10RATE 25 FIO2 90%. SATS 98-100%. NGT TO RT NARE TO LIS, 16FR NO TO BSD PATENT AND 150 ML URINE OBSERVED IN COLLECTION BAG. PICC TO AFIA, 20GLH, 20GRAC PATENT AND SITE WNL. DIPROVAN AND VERSED INFUSING PER MD ORDERS. EXCORIATION NOTED TO BUTTOCKS BARRIER CREAM APPLIED. 1130 CONSENT FOR CONV PLASMA OBTAINED VIA TELEPHONE BY BANDAR LARIOS (SON) UPDATE GIVEN TO BANDAR ON THIS PT AT THIS TIME. NO NEW CONCERNS VOICED BY FAMILY. 1305 CONV PLASMA INFUSING WITH NO S/S OF ADVERSE REACTION 1330 VENT SETTINGS ADJUSTED PER RT 1345 CONV PLASMA COMPLETED WITH NO ADVERSE REACTIONS AT THIS TIME. NEW ORDER GIVEN FOR GLUCERNA 1.5 1 CAN TID VIA NGT GIVEN. PT HAS BEEN TURNED AND REPOSTIONED THROUGHOUT THIS SHIFT. 1812 VENT SETTINGS ADJUSTED PER RT. PT TOLERATED THE CHANGES
--- NOTE | 2021-02-12 13:24 | NUR ---
TURNED O2 TO 80%
--- NOTE | 2021-02-12 16:28 | NUR ---
DROPPED PATIENTS FIO2 TO 60% AND NURSE DONE PATIENT SUCTIONED AND DONE MOUTH CARE.PATIENT SATING 98% AND HR 89
--- NOTE | 2021-02-12 18:09 | NUR ---
DECREASED O2 TO 50% AND PATIENT SATING 97%
--- NOTE | 2021-02-12 21:00 | NUR ---
PM ASSESSMENT COMPLETED. NOTED PT WITH EDEMA TO HER RIGHT ARM AND HAND. EDEMA TO UPPER EXTREMITIES BILATERAL. CM SHOWING NSR AT 88 BPM. NO CATHETAR MALAWIAN INTACT WITH YELLOW URINE DRAINING. PT IS RECEIVING DIPRAVAN 50 MCQ/KG. VERSED DRIP INFUSING AT 0.05MG/KG/HOUR AND NS INFUSING AT 75 ML/HR. NG TUBE INTACT AND DRAINING GREEN STOMACH SECRETIONS. BP IS ELEVATED AT 177/69. PT IS BEING TURNED AND REPOSITIONED EVERY 2 HOURS AND ORAL CARE BEING GIVEN.
--- NOTE | 2021-02-12 21:27 | NUR ---
PT WAS GIVEN LABETALOL IVSP FOR ELEVATED HEART RATE.
--- NOTE | 2021-02-12 22:40 | NUR ---
REASSESSED AFTER HYDRALAZINE . 150/70.
[2021-02-13] VITALS (24 sets, daily range): BP systolic 135–196; BP diastolic 66–471; TEMP 98.1–98.3
--- NOTE | 2021-02-13 01:18 | NUR ---
1930: PATIENT WAS ASSESED AND ALL IV LINES WERE PATENT CLEAN DRY AND INTACT.
--- NOTE | 2021-02-13 01:35 | NUR ---
LATE ENTRY 03/15/21 2300; PATIENTS SON WAS UPDATED ON PATIENTS CURRENT SITUATION. MOUTH CARE WAS COMPLETE. 0000: PATIENT WAS REPOSITIONED
--- NOTE | 2021-02-13 02:11 | NUR ---
RESPIRTORY AT BEDSIDE, DEEP SUCTIONING PATIENT. PATIENT 02 SATURATION NOW AT 94%
--- NOTE | 2021-02-13 05:12 | NUR ---
Patient has been repositioned. patient was moving mouth, patients propofol was titrated up to 60mcg/kg/min. patient is now resting nad is no longer fighting the vent
[2021-02-13 06:10] LABS: PLATELET COUNT 116 K/uL (152-353)
[2021-02-13 06:48] LABS: POTASSIUM 3.4 mmol/L (3.6-5.2)
--- NOTE | 2021-02-13 10:10 | NUR ---
DR JAQUEZ AT BEDSIDE
--- NOTE | 2021-02-13 20:56 | NUR ---
PT'S SON BANDAR CALLED. UPDATE STATUS GIVEN TO BANDAR. BP IS 182/85. LABETALOL 20 MG IVSP GIVEN.
[2021-02-14] VITALS (17 sets, daily range): BP systolic 135–206; BP diastolic 58–91; TEMP 98.9–99.6
--- NOTE | 2021-02-14 03:04 | NUR ---
PT HAS BEEN REPOSITIONED IN BED. ORAL CARE DONE.
--- NOTE | 2021-02-14 03:30 | NUR ---
.RESPIRTORY THERAPIST AT BEDSIDE. PT'S ET TUBE WAS LAVAGED AND SUCTIONED. THICK WHITE SECRETIONS WER OBTAINED. PT WITH DECREASE O2 SATS. PT WAS BAGGED. ET TUBE WAS ADVANCED FOR GOOD PLACEMENT. XRAY WAS DONE TO CONFIRM PLACEMENT. PT WITH IMPROVED O2 SATS WITH THIS INTERVENTION. ABG WAS DRAWN. PEEP WAS INCREASED PER RESP THERAPIST. RT PLACED NEW TUBE BOTELLO HOLLISTE ENDOTRACH ON AND SECURED.
[2021-02-14 06:29] LABS: PLATELET COUNT 124 K/uL (152-353)
--- NOTE | 2021-02-14 09:00 | NUR ---
PT'S BP 167/78 HR 101 HYDRALAZINE 10MG IVSP GIVEN PER MD ORDERS. NG TUBE DISCONNECTED FROM SUCTION AT THIS TIME FOR MEDS/FEEDING. NG TUBE PLACEMENT VERIFIED. MEDS GIVEN VIA NG TUBE TO RIGHT NARE FOLLOWED BY ONE CAN OF GLUCERNA 1.5 GIVEN PER MD ORDERS. NG FLUSHED BEFORE AND AFTER WITH 60CC OF WATER. PT TOLERATED WELL.
--- NOTE | 2021-02-14 10:46 | NUR ---
AT THE BEDSIDE. NEW ORDERS GIVEN FOR A CARDIZEM DRIP FOR INCREASED BLOOD PRESSURE AND HR 107, B/P 205/91.
--- NOTE | 2021-02-14 11:26 | NUR ---
CARIZEM 5 MG/HR STARTED AT THIS TIME
--- NOTE | 2021-02-14 12:09 | NUR ---
BLOOD PRESSURE READING 191/87, HR 109. CARDIZEM DRIP INCREASED TO 12 MCG/HR.
--- NOTE | 2021-02-14 12:19 | NUR ---
PATIENT BLOOD PRESSURE CONTINUES WITH HIGH BLOOD PRESSURE OF 190/96, HR 110. CARDIZEM INCREASED 15 MG/HR.
--- NOTE | 2021-02-14 12:30 | NUR ---
ATTEMTPED TO CALL DR ADRIAN MARTINEZ PT'S BP DEPSITE ZACK NEVAREZ. NO ANSWER. MESSAGE LEFT FOR MD TO RETURN CALL CONCERNING BP OF 192/79 PT REC'D LABATELOL IVP PRN PER ORDERS.
--- NOTE | 2021-02-14 12:43 | NUR ---
PATIENT GIVEN LABETOLOL 20 MG IV PUSH PER . CURRENT BLOOD PRESSURE 144/65, HR- 97.
--- NOTE | 2021-02-14 15:20 | NUR ---
FENTANYL INCREASED TO 50MCG
--- NOTE | 2021-02-14 16:06 | NUR ---
PATIENTS BLOOD PRESSURE 178/76, HR 107. AXILLARY TEMP 99.6. LABATOLOL 20 MG GIVEN IV PUSH X1.
--- NOTE | 2021-02-14 20:15 | NUR ---
PT REPOSITIONED AT THIS TIME. NO ACUTE DISTRESS NOTED. VITAL SIGNS BEING CONTINUOUSLY MONITORED.
--- NOTE | 2021-02-14 22:30 | NUR ---
RESTING WITH EYES CLOSED, NO S/S OF PAIN OR DISTRESS NOTED, REMAINS ON VENT, IV INTACT TO L HAND FLUSHED EASILY WITH 10ML NS SALINE LOCK, PICC INTACT TO L UPPER ARM WITH FENTANYL DRIP AT 50MCG/HR, VERSED AT 10ML/HR, CARDIZEM AT 15MG/HR, NS AT KVO RATE. REPOSITIONED IN BED, FEET AND ARMS ELEVATED ON PILLOWS DUE TO EDEMA, VITALS BEING MONITORED, RAILS UP, BED IN LOW POSITION.
[2021-02-15] VITALS (24 sets, daily range): BP systolic 133–155; BP diastolic 56–82; TEMP 97.6–99.8
--- NOTE | 2021-02-15 00:31 | NUR ---
RESTING WITH EYES CLOSED, NO S/S OF DISTRESS NOTED, RESP RATE 25 NONLABORED, ON VENT WITH FIO2 50% O2 SAT 96%, NG TUBE INTACT R NARE TO LIS, NO PATENT DRAINING TO BEDSIDE WITH YELLOW CLEAR URINE NOTED, PICC LINE INTACT TO L UPPER ARM, VITALS BEING MONITORED, CUSTOMER SERVICE ADVOCATE IN USE WITH RATE IN 70s, MOUTH CARE COMPLETED AND PT REPOSITIONED IN BED, HANDS AND FEET ELEVATED ON PILLOWS, WILL MONITOR, RAILS UP, BED IN LOW POSITION.
--- NOTE | 2021-02-15 02:45 | NUR ---
PT RESTING WITH EYES CLOSED, NO S/S OF PAIN OR DISTRESS NOTED, RESP RATE NONLABORED, ON VENT WITH SAT OF 96% FIO2 50%, IV AND PICC INTACT, NO PATENT, NG TUBE INTACT, VERSED DRIP AT 10ML/HR, FENTANYL DRIP AT 50MCG/HR, CARDIZEM AT 15MG/HR, REPOSITIONED TO R SIDE IN BED, FEET AND HANDS ELEVATED ON PILLOWS, WILL MONITOR CLOSELY, RAILS UP, BED IN LOW POSITION.
[2021-02-15 05:09] LABS: PLATELET COUNT 110 K/uL (152-353)
[2021-02-15 05:35] LABS: POTASSIUM 4.1 mmol/L (3.6-5.2)
--- NOTE | 2021-02-15 05:35 | NUR ---
PT REPOSITIONED AT THIS TIME. NO ACUTE DISTRESS NOTED. VITAL SIGNS ARE STABLE AT THIS TIME. PT RESTING IN LOW FOWLERS WITH HER EYES CLOSED. NAD NOTED.
--- NOTE | 2021-02-15 12:00 | NUR ---
PT'S NG TUBE DISCONNECTED FROM SUCTION. PLACEMENT VERIFIED. FLUSHED WITH 50CC WATER. MEDS GIVEN, ONE CAN OF GLUCERA 1.2 GIVEN AT THIS TIME. FLUSHED WITH 50CC WATER. PT TOLERATED FEEDING WELL. TYLENOL GIVEN FOR FEVER.
--- NOTE | 2021-02-15 12:10 | NUR ---
SUBCUTANOUS EMPHYSEMA NOTED. DL FERNANDO RN WAS NOTIFIED. RN TO CALL [facility]YSCICAN.
--- NOTE | 2021-02-15 12:16 | NUR ---
CREPITOUS NOTED TO RT UPPER CHEST/NECK. ALSO LOW GRADE FEVER OF [address] CAMPBELL CALLED AND INFOMRED. ORDERS REC'D TO OBTAIN CXR STAT
--- NOTE | 2021-02-15 12:44 | NUR ---
XRAY AT BS TO OBTAIN CHEST XRAY
--- NOTE | 2021-02-15 13:18 | NUR ---
DR CUELLAR NOTIFIED TO LOOK AT CXR REPORT AT THIS TIME.
--- NOTE | 2021-02-15 14:02 | NUR ---
FENTANYL INCREASED TO 75MCG PER MD D/T VENT SETTINGS CHANGES
--- NOTE | 2021-02-15 14:03 | NUR ---
DR CAMPBELL HERE AT BS AT THIS TIME.
--- NOTE | 2021-02-15 14:29 | NUR ---
INCREASED FENTANYL TO 100MCG
--- NOTE | 2021-02-15 14:30 | NUR ---
LABETALOL 20MG IV GIVEN NOW PER MD ORDERS AT THIS TIME FOR BP 193/76 HR 90
--- NOTE | 2021-02-15 15:24 | NUR ---
1518- PEEP CHANGED TO 6, PS AT 12. SPO2 AT 88-90%. ABG IN ONE HOUR.
--- NOTE | 2021-02-15 17:20 | NUR ---
INCREASED SPO2 TO 100% PER DR MAC DUE TO THE ABG VALUES OF AN SPO2 OF 86%. SHE WOULD LIKE 88% OR BETTER.
--- NOTE | 2021-02-15 18:00 | NUR ---
INCREASED FENTANYL TO 150MCG/HR D/T VENT SETTINGS CHANGED PER MS
--- NOTE | 2021-02-15 20:40 | NUR ---
SHIFT ASSESSMENT COMPLETED. PATIENT REMAINS SEDATED ON MECHANICAL VENTILATION WITH VENT SETTINGS FOLLOWED: VENT MODE SIMV, TV 550 ML, PRESSURE SUPPORT 12, RATE 25, FIO2 100%, PEEP 6 WITH SPO2 100%. BLOOD PRESSURE 153/60, HR- 62 ON CARDIZEM DRIP AT 15 MG/HR TO PICC LINE IN THE LEFT UPPER ARM. PICC LINE IS INTACT WITH NO SIGNS OF INFILTRATION OR PHLEBITIS NOTED. PATIENT IS SEDATED ON VERSED 0.1 MG/KG/HR (8ML/HR) AND FENTANYL AT 150 MCG/HR TO THE SECOND LUMEN ON PICC LINE TO THE LEFT UPPER ARM. NG TUBE IS PRESENT TO THE RIGHT NARE CONNECTED TO LIWS- NO OUTPUT NOTED IN SUCTION CANISTER. PATIENT AXILLARY TEMP 99.8. COOL RAGS NOTED TO BILATERAL AXILLARY. 16.F.NO PRESENT TO BSD WITH APPROX. 100 ML OF YELLOW URINE NOTED. DEPENDENT EDEMA TO UPPER BILATERAL EXTREMITIES ELEVATED ON PILLOWS. BED LOCKED IN LOW POSITION.
--- NOTE | 2021-02-15 21:43 | NUR ---
PATIENT NOTED WITH HR FLUCTUATING B/W 59-60. CARDIZEM TITRATED DOWN FROM 15 MG/HR TO 13 MG/HR. WILL MONITOR CLOSELY.
--- NOTE | 2021-02-15 22:02 | NUR ---
PATIENTS HR NOTED 57-59. CARDIZEM DRIP TITRATED DOWN TO 10 MG/HR.
--- NOTE | 2021-02-15 22:18 | NUR ---
HR FLUCTUATING DOWN TO 54 LOW 49. CARDIZEM DRIP HELD AT THIS TIME. CURRENT BLOOD PRESSURE READING 150/61.
--- NOTE | 2021-02-15 23:01 | NUR ---
PATIENT GIVEN ORAL CARE AND SUCTIONED. LARGE AMOUNT OF BROWN/PINKISH SECRETIONS NOTED. MOISTURIZER APPLIED TO LIPS.
--- NOTE | 2021-02-15 23:52 | NUR ---
FENTANYL TITRATED DOWN TO 75 MCG/KG/HR DUE TO PATIENTS HR DECREASING WELL. CURRENT HR-54. VERSED TITRATED DOWN 0.0625 (5ML/HR).
[2021-02-16] VITALS (24 sets, daily range): BP systolic 151–189; BP diastolic 52–82; TEMP 97.3–98.2
--- NOTE | 2021-02-16 00:21 | NUR ---
PATIENT NOTED WITH DECREASED HR 46-50. PATIENTS BLOOD PRESSURE IS 151/62. CONCERN FOR DECREASING HR. IN THE ER NOTIFIED ABOUT CURRENT HEARTRATE 46. ORDER PLACED AT THIS TIME.
--- NOTE | 2021-02-16 00:29 | NUR ---
RT AT BEDSIDE DOING EKG. EKG READS SINUS BRAYCARDIA 47. CURRENT BLOOD PRESSURE 152/64. NOTIFIED OF EKG READING AND HE STATED TO MONITOR HR AND CONTINUE WITH CURRENT PLAN OF CARE. NO FURTHER ORDERS GIVEN.
--- NOTE | 2021-02-16 03:24 | NUR ---
PATIENT GIVEN A BED BATH AND IT WAS NOTED SHE HAD A LARGE LOOSE BOWEL MOVEMENT AND SATURATED BED WHICH LOOKED AND SMELLED LIKE URINE. 16.F.NO CATHETER ASSESSED AND IT WAS INTACT AND BULB WAS MEASURING 10 ML OF SALINE. PATIENT CLEANED AND IT WAS NOTED ON HER SACRUM A SMALL BREAKDOWN STAGE 2 DECUBITUS MEASURING APPROX. 1CM X 0.2 CM. AREA CLEANED AND PADDED DRY AND OPTIFOAM SACRUM APPLIED. EXCORIATION NOTED UNDER LEFT BUTT CHEEK AND SKIN PROTECTANT CREAM APPLIED. PATIENT REPOSITIONED UP IN THE BED AND ON TO HER RIGHT SIDE. CURRENT HR STILL REMAINS IN THE LOW 40'S BUT BLOOD PRESSURE IS MAINTAINING WELL.
--- NOTE | 2021-02-16 05:28 | NUR ---
ORAL CARE PROVIDED PATIENT REPOSITIONED ON TO HER BACK.
[2021-02-16 05:35] LABS: PLATELET COUNT 98 K/uL (152-353)
[2021-02-16 06:04] LABS: POTASSIUM 4.1 mmol/L (3.6-5.2)
--- NOTE | 2021-02-16 06:09 | NUR ---
RAIOLOGY AT THE BEDSIDE DOING CHEST X-RAY.
--- NOTE | 2021-02-16 09:05 | NUR ---
PATIENT'S NG TUBE ASSESSED AND CONFIRMED PLACEMENT, NG TUBE FLUSHED WITH 60ML OF FREE WATER WITHOUT DIFFICULTYL, GLUCERNA GIVEN VIA NG TUBE AND FLUSHED WITH 60ML OF FREE WATER. PATIENT TOLERATED WELL. LOW INTERMITTMNET SUCTION STOPPED PRIOR TO NG TUBE ASSESSMENT.
--- NOTE | 2021-02-16 10:20 | NUR ---
SUCTION TO PATIENT'S NG TUBE RESTARTED WITHOUT DIFFICULTY. PATIENT TOLERATING WELL.
--- NOTE | 2021-02-16 10:52 | NUR ---
DR. THOMSON, FISHERIES TECHNICIAN, AT BEDSIDE ASSESSING PATIENT AND REVIEWING CHART. RECEIVED NEW ORDERS, NOTED AND CARRIED OUT.
--- NOTE | 2021-02-16 12:50 | NUR ---
PATIENT PRONED WITHOUT DIFFICULTY.
--- NOTE | 2021-02-16 19:25 | NUR ---
PATIENT IN PRONE POSITION AT SHIFT CHANGE. PATIENT REPOSITIONED BACK ON HER BACK AND REPOSITIONED UP IN BED. EYE CARE DONE AT THIS TIME.
--- NOTE | 2021-02-16 21:27 | NUR ---
ORAL CARE PROVIDED. MOISTURIZER APPLIED TO BOTH LIPS.
--- NOTE | 2021-02-16 23:25 | NUR ---
PATIENTS BLOOD PRESSURE NOTED 182/75. HYDRALAZINE 10 MG GIVEN IV PUSH.
--- NOTE | 2021-02-16 23:50 | NUR ---
ASCULTATED ABDOMEN TO CONFIRM PLACEMENT OF NG TUBE AND POSITIVE AIRFLOW NOTED. FLUSHED WITH 100ML OF WATER GIVEN AND THE 1 CAN OF GLUCERNA 1.2 FOLLOWED BY FLUSH OF 100 ML OF WATER. PATIENT TOLERATED WELL. NG TUBE LEFT CLAMPED FOR 1 HOUR.
[2021-02-17] VITALS (14 sets, daily range): BP systolic 129–171; BP diastolic 53–67; TEMP 97.5–97.7
--- NOTE | 2021-02-17 00:30 | NUR ---
BLOOD PRESSURE POST HYDRALAZINE 142/67
--- NOTE | 2021-02-17 01:14 | NUR ---
PATIENTS NO WAS LEAKING AROUND THE INCERTION SITE AND WAS WETTING THE GARRY. THE NO WAS D/C AND DEB CARE COMPLETE. A 18F NO WAS INCERTED IN ITS PLACE. BULB WAS INFLATED WITH 15ML OF NS. PATIENT IS CLEAN DRY AND INTACT. SILVADEEN WAS PLACED ON STAGE 2 PRESSURE ULCER ON SACRUM WITH OPTI FOAM SACRUM
--- NOTE | 2021-02-17 03:16 | NUR ---
PATIENT IS RESTING QUIETLY. NO ACUTE DISTRESS NOTED. BLOOD PRESSURE 145/59. WILL CONTINUE TO MONITOR.
[2021-02-17 05:41] LABS: PLATELET COUNT 84 K/uL (152-353)
--- NOTE | 2021-02-17 07:29 | NUR ---
PATIENT HAS A BLISTER TO THE LEFT HEEL. IT IS A BLISTER LIKE WOUND. HEELS HAVE BEEN REFLOATED
--- NOTE | 2021-02-17 20:05 | NUR ---
SHIFT ASSESSMENT COMPLETED. PATIENT IS ON THE VENT AND IS SEDATED AT THIS TIME.
--- NOTE | 2021-02-17 22:22 | NUR ---
ASCULTATED ABDOMEN FOR CONFIRMATION OF NG TUBE AND POSITIVE AIRFLOW NOTED. NO RESIDUAL NOTED ON RETURN. PATIENT GIVEN 100 ML OF FREE WATER FOLLOWED BY 1 CAN OF GLUCERNA 1.2 ( 240 ML) AND THEN 100 ML OF WATER AFTER FEEDING. AN ADDITIONAL 60 ML OF FREE WATER GIVEN WITH GLUCERNA TO DILUTE FEEDING FOR EASE DOWN 60 ML SYRINGE. PATIENT WAS PLACED IN HIGH FOWLERS POSITION DURING FEEDING AND AFTER WARDS FOR DECREASED RISK OF ASPIRATION. NG TUBE CLAMPED AT THIS TIME.
--- NOTE | 2021-02-17 23:37 | NUR ---
PATIENTS BLOOD PRESSURE 157/66. SYSTOLIC GREATER THEN 150. HYDRALAZINE 10 MG GIVEN IV PUSH.
--- NOTE | 2021-02-18 00:12 | NUR ---
PATIENT HAS A STAGE 2 WOUNG TO HER SACRUM. IT IS BANDAGED WITH SILVDEEN AND A OPTIFOAM DESSING. PATIENT HAS ABIGAIL REPOSITIONED AND HER HEEL HAS A BLISTER OF UNSTAGEABLE DEPTH ON THE LADERAL ASPECT OF HER LEFT HEEL. HEELS ARE FLOATED
--- NOTE | 2021-02-18 02:34 | NUR ---
ASCULTATED ABDOMEN TO VERIFY NG TUBE PLACEMENT AND POSITIVE AIR NOTED. APPROX. 30 ML OF GASTRIC CONTENT NOTED. PATIENT GIVEN 200 ML OF FREE WATER VIA NG TUBE. PATIENT LEFT IN HIGH FOWLERS POSITION. PATIENT TOLERATED WELL.
--- NOTE | 2021-02-18 03:49 | NUR ---
PATIENT REPOSITIONED ON TO HER RIDE SIDE.
--- NOTE | 2021-02-18 04:13 | NUR ---
PATIENT BECAME SOME AGGITATED AFTER HER BED BATH AND BARB CLAMPING DOWN ON THE TUBE. THE FENTENYL DRIP WAS INCREASED TO 100 MCG/KG/MIN
[2021-02-18 04:36] LABS: POTASSIUM 3.8 mmol/L (3.6-5.2)
[2021-02-18 04:38] LABS: PLATELET COUNT 96 K/uL (152-353)
--- NOTE | 2021-02-18 07:04 | NUR ---
LATE ENTRY 0500: PATIENT HAS BEEN REPOSITIONED AND RESPIRATORY WAS AT THE BEDSIDE SUCTIONING AND LEVAGEING HER. PATIENT O2 SAT IS 100% AND PATIENT IS RESTING
--- NOTE | 2021-02-18 08:00 | NUR ---
AM ASSESSMENT COMPLETE. R PEDAL PULSE DETECTED WITH DOPPLER. BILAT HEELS FLOATING. HOB UP. MOUTHCARE DONE. VENT TV 550, PS 12, RATE 25, FIO2 100%. ET 23 @LIP.
--- NOTE | 2021-02-18 08:05 | NUR ---
LATE ENTRY: TEMPS FOR 02/17- 1900: 98.6 0000: 98.1 0400: 98.3
--- NOTE | 2021-02-18 11:00 | NUR ---
FREE WATER AND GLUCERNA 1 CAN GIVEN, PT HAD 20CC RESIDUAL PRIOR TO FEEDING.
--- NOTE | 2021-02-18 14:00 | NUR ---
DECREASED FI02 85% PER R.T
--- NOTE | 2021-02-18 17:25 | NUR ---
PATIENT HAD A LARGE BOWEL MOVEMENT, PATIENT CLEANED AND EXTENSIVE BED BATH GIVEN, LINENS CHANGED, EXTENSIVE MOUTH CARE PERFORMED, PATIENT SUCTIONED WITH COPIOUS AMOUNTS OF WHITE THICK SECRETIONS. PATIENT TOLERATED WELL.
--- NOTE | 2021-02-18 18:45 | NUR ---
LATE ENTRIES: 09 PATIENT'S NG TUBE ASSESSED, NO RESIDUAL NOTED AT THIS TIME. PATIENT'S NG TUBE FLUSHED WITH 100ML OF FREE WATER, GLUCERNA FED THRU NG TUBE AND FLUSHED WITH ADDITIONAL 100ML OF FREE WATER GIVEN AFTER FEEDING. PATIENT TOLERATED WELL. PATIENT TOLERATED WELL. INTERMITTENT SUCTION STOPPED PRIOR TO FEEDING. 1050 INTERMITTENT SUCTION TO NG TUBE RESUMED WITHOUT DIFFICULTY NOTED. 1345 INTERMITENT SUCTION STOPPED AND PATIENT'S NG TUBE ASSESSEDAND PLACEMEN CONFIRMED. 200ML OF FREE WATER ADMINSITERED VIA NG TUBE WITHOUT DIFFICULTY. PT TOLERATED WELL. 1510 NG TUBE INTERMITTENT SUCTION RESUMED WITHOUT DIFFICULTY. 1755 INTERMITTENT SUCTION TO NG TUBE STOPPED AND ADMINISTERED 200ML FREE WATER WITHOUT DIFFICULTY. 1835 NG TUBE INTERMITTED SUCTION RESUMED.
--- NOTE | 2021-02-18 19:13 | NUR ---
STAGE 2 TO LEFT BUTTOCK 4.2CMX0.9CMX0.2CM WITH RED WOUND BED STAGE 2 TO SACRUM 2.3CMX1.7CMX0.1CM. WOUND CLEANED WITH NS AQUACELL AND HYDROGEL APPLIED. COVERED WITH BORDER GAUZE
--- NOTE | 2021-02-18 20:07 | NUR ---
SHIFT ASSESSMENT COMPLETED.
[2021-02-19] VITALS (13 sets, daily range): BP systolic 112–195; BP diastolic 65–93; TEMP 98.1–98.3
--- NOTE | 2021-02-19 00:34 | NUR ---
ASUCULTATED ABDOMEN FOR CONFIRMATION OF NG TUBE AND POSITIVE AIRFLOW NOTED. NO RESIDUAL NOTED ON RETURN. PATIENT GIVEN 300 ML OF FREE WATER AND ONE CAN OF GLUCERNA 1.2. NG TUBE CLAMPED. WILL RECLAMP IN ONE HOUR.
--- NOTE | 2021-02-19 02:59 | NUR ---
ATTEMPTED PATIENT REPOSITION BUT PATIENT BEGAN MOVING HER MOUTH ON THE VEBT TUBE. PATIETN FENTNYL WAS TITRATED UP TO 100 MCG/KG/MIN. NOW PATIENT IS APPROPRATELY SEDATED AND MOUTH CARE AND TURNING COMPLETE
--- NOTE | 2021-02-19 05:21 | NUR ---
RT HER FOR CHEST X-RAY/
[2021-02-19 05:39] LABS: PLATELET COUNT 99 K/uL (152-353)
--- NOTE | 2021-02-19 15:12 | NUR ---
DECREASED FIO2 TO 80%. SPO2 AT 94-95%. WILL CONTINUE TO MONITOR.
--- NOTE | 2021-02-19 22:00 | NUR ---
MOUTH CARE COMPLETED AT THIS TIME, PT REPOSITONED IN BED, HOB ELEVATED, REMAINS SEDATED ON VENT, VITALS BEING MONITORED, NO AND RECTAL TUBE INTACT, NG TUBE INTACT TO R NARE, ET TUBE 23 AT LIP. WILL MONITOR CLOSELY, RAILS UP, BED IN LOW POSITION.
--- NOTE | 2021-02-19 23:44 | NUR ---
2300 AT BEDSIDE PT HIGHPRESSURE ALARMS ARE ALARMING, SUCTIONED PT. THICK CHUNKY GREEN. LAVAGED PT AND SUCTIONED. SATS DROPPING INTO 70s. INCREASED FIO2 TO 100%. SPO2 INCREASED TO 90s. PIP PRESSURES ARE STILL HIGH. BUT PT SEEMS TO BE COMFORTABLE.DID MOUTHCARE. CHANGED HER HMS AND INLINE SUCTION WILL CONTINUE TO MONITOR PT.
[2021-02-20] VITALS (19 sets, daily range): BP systolic 100–201; BP diastolic 45–99; TEMP 98.4–99.8
--- NOTE | 2021-02-20 00:30 | NUR ---
10ML RESIDUAL NOTED VIA NG TUBE TO R NARE, GAVE FEEDING OF GLUCERNA 1 CAN ALONG WITH 300ML WATER(GAVE SOME BEFORE AND AFTER FEEDING), TOLERATED WITH NO PROBLEMS. REPOSITIONED TO BACK, FEET AND HANDS ELEVATED ON PILLOWS, NO S/S OF DISTRESS NOTED, WILL MONITOR CLOSELY,RAILS UP, BED IN LOW POSITION.
--- NOTE | 2021-02-20 03:40 | NUR ---
RESTING WITH EYES CLOSED, NO S/S OF PAIN OR DISTRESS NOTED, VITALS BEING MONITORED, NG TUBE INTACT, NO AND RECTAL TUBE PATENT, REMAINS ON VENT. REPOSITIONED TO R SIDE, FEET AND HANDS ELEVATED ON PILLOWS DUE TO EDEMA, WILL MONITOR CLOSELY, RAILS UP, BED IN LOW POSITON WITH HOB ELEVATED.
[2021-02-20 05:44] LABS: PLATELET COUNT 110 K/uL (152-353)
[2021-02-20 06:02] LABS: POTASSIUM 4.2 mmol/L (3.6-5.2)
--- NOTE | 2021-02-20 06:25 | NUR ---
REPOSITIONED TO L SIDE IN BED WITH FEET AND HANDS ELEVATED ON PILLOWS, HOB ELEVATED, REMAINS ON VENT WITH O2 SAT OF 92%, RESP RATE NONLABORED, PICC INTACT TO L UPPER ARM, 20G IV LOCK INTACT TO R AC, LIPS MOISTURIZED, NG TUBE INTACT TO R NARE, VITALS BEING MONITORED, [employer] TECH IN USE WITH REGULAR RATE OF 74 NOTED, NO PATENT ALONG WITH RECTAL TUBE. HOB ELEVATED, RAILS UP, BED IN LOW POSITION. REMAINS SEDATED ON VENT.
--- NOTE | 2021-02-20 07:19 | NUR ---
RADIOLOGIST CALLED FROM [facility] AND STATED THAT PT'S ET TUBE NEEDED TO BE PULLED BACK 1 CM. WILL INFORM
--- NOTE | 2021-02-20 09:10 | NUR ---
CHECKED PT'S NG TUBE FOR RESIDUAL. 100CC NOTED. PLACEMENT VERIFIED. 100CC FREE WATER GIVEN AT THIS TIME. STARTED PT'S FEEDING GLUCERNA 1.2. 100CC ADMINISTERED PT STARTS GURGLING, STOPPED PT'S FEEDING AT THIS TIME. NOTIFIED DL FERNANDO RN AT BEDSIDE. RESPIRATORY NOTIFIED. PT'S MOUTH SUCTIONED WITH 15CC SUCTIONED FROM PT'S MOUTH. RESPIRATORY CHECKED PT'S ET TUBE CUFF AND ADDED AIR. PT'S NG TUBE CONNECTED BACK TO SUCTION AND BEGAN SUCTIONING FEEDING AND FREE WATER BACK OUT. O2 SATS NOTED TO DECREASE TO 77%. PER RESPIRATORY PT VENT SETTING INCREASED TO 100% FIO2 AT THIS TIME. DR. CAMPBELL NOTIFIED. NO NEW ORDERS REC'D AT THIS TIME.
--- NOTE | 2021-02-20 09:39 | NUR ---
RESPIRATORY CHANGED HER TO SIMV-PC BECAUSE FOR PIP SO HIGH, PATIENT IS TOLERATED THIS MODE WELL. SAT 96% PRESSURE CONTROL 26 PS 10 PEEP 10 RATE 55 100%. PIP IS DONE FROM 89 TO 19.5. MV 11
--- NOTE | 2021-02-20 10:00 | NUR ---
PT'S HR NOTED TO BE INCREASED TO 38 AT THIS TIME WITH HR OF 111. PT SLIGHTLY LABORED AT THIS TIME. PT EYES OPENED. FENTANYL INCREASED TO 150MCG. WILL CONT TO MONITOR. DR CAMPBELL INFORMED NO NEW ORDERS AT THIS TIME.
--- NOTE | 2021-02-20 11:00 | NUR ---
DR ZAMORANO HERE AT THIS TIME. NO NEW ORDERS REC'D
--- NOTE | 2021-02-20 14:29 | NUR ---
THERAPY AT AT THIS TIME.
--- NOTE | 2021-02-20 20:05 | NUR ---
SHIFT ASSESSMENT COMPLETED. PATIENT IS ON THE VENT WITH THE FOLLOWING SETTINGS FIO2 80%, PEEP 10, PS 10, RATE 22. ET TUBE SIZE 7.5; 23 AT THE LIP. PATIENT HAS A LEFT UPPER PICC LINE INFUSING VERSED 0.13 MG/KG/H, FENTANYL 150 MCG/KG. D5 AT 75 ML/HR INFUSING W/O DIFFICULTY. PATIENT HAS A NG TUBE TO THE RIGHT NARE CONNECTED TO LOW INTERMITTENT SUCTION. 16 F.NO CATHETER TO BSD. RECTAL TUBE TO BSD. PATIENT HAS A LARGE BILSTER ON THE LATERAL SIDE OF HER LEFT FOOT MEASURING APPROX. 9CM X 6.5 CM BLISTER IS FILLED WITH SEROUS FLUID. BOTH UPPER AND LOWER EXTREMITIES ELEVATED ON PILLOWS.
--- NOTE | 2021-02-20 21:47 | NUR ---
ASCULTATED ABDOMEN FOR CONFIRMATION OF NG TUBE AND POSITIVE AIRWAY NOTED. RESIDUAL CHECKED AND NO GASTRIC CONTENTS NOTED ON RETURN. PATIENT GIVEN 200 ML OF FREE WATER FOLLOWED BY 1 CAN OF GLUECERNA (237ML). PATIENT KEPT ABOVE 30 DEGREES DURING AND AFTER FEEDING.
--- NOTE | 2021-02-20 22:07 | NUR ---
ORAL CARE AND EYE CARE GIVEN. PATIENT SUCTIONED AND SMALL AMOUNT OF THICK GREEN SECRETIONS NOTED. MOISTURIZER APPLIED TO LIPS.
[2021-02-21] VITALS (18 sets, daily range): BP systolic 100–168; BP diastolic 40–98; TEMP 98.5–100.9
--- NOTE | 2021-02-21 01:28 | NUR ---
PATIENT REPOSITIONED ON HER LEFT SIDE WITH PILLOWS FOR SUPPORT.
--- NOTE | 2021-02-21 03:24 | NUR ---
ORAL CARE AND EYE CARE DONE. PATIENT REPOSITIONED ON HER BACK.
[2021-02-21 04:50] LABS: PLATELET COUNT 105 K/uL (152-353)
[2021-02-21 04:54] LABS: POTASSIUM 4.6 mmol/L (3.6-5.2)
--- NOTE | 2021-02-21 06:07 | NUR ---
RADIOLOGY HERE TO DO CHEST X-RAY.
--- NOTE | 2021-02-21 11:28 | NUR ---
i spoke with pts son, joshua goff, to give him an update on pts status. i answered all questions and he verbalized understanding.
--- NOTE | 2021-02-21 16:30 | NUR ---
GLUCERNA 1.2 AND FREE WATER 300ML BEGAN INFUSING CONTINUOUSLY VIA NG TUBE WITHOUT DIFFICULTY. NO S/SX OF DISTRESS NOTED WITH PATIENT AT THIS TIME.
--- NOTE | 2021-02-21 18:00 | NUR ---
PT RESTING QUIETLY. O2 SATS90%.
--- NOTE | 2021-02-21 18:35 | NUR ---
LATE ENTRIES: 0925 AM MEDICATIONS GIVEN. SUCTION TO NG TUBE D/C'D AT THIS TIME AND ASSESSED AND CONFIRMED PLACEMENT BY AUSCULTATION. 200ML OF FREE WATER ADMINISTERED THROUGH NG TUBE, GLUCERNA 1.2 X1 CARTON, AND NG TUBE FLUSHED WITH 200ML OF FREE WATER WITHOUT DIFFICULTY. APPROXIMATELY 5ML OF RESIDUAL NOTED TO WHEN NG TUBE WAS ASSESSED. 0950 EXTENSIVE MOUTH CARE PERFORMED AND MOUTH AND LIPS LUBRICATED WITH MOISTURIZER. 1055 PATIENT REPOSITIONED ONTO RIGHT SIDE WITH TORSO AND UPPER AND LOWER EXT SUPPORTED WITH PILLOWS. FECAL RECTAL TUBE INSERTED WITHOUT DIFFICULTY, DRESSING CHANGED TO SACRUM AND BUTTOCKS, AQUACEL PLACED ON WOUNDS AND COVERED WITH BORDERFOAM. 1120 PATIENT'S SPO2 DECREASED TO 80'S. PATIENT INLINE SUCTIONED WITH COPIOUS AMOUNTS OF THICK WHITE SECRETIONS REMOVED. PT ORAL SUCTIONED WITH COPIOUS AMOUNTS OF THICK YELLOW/TANNED. PATIENT REPOSITIONED ONTO LEFT SIDE. 1207 PATIENT'S SPO2 DECREASED TO 74%, HR 101, BP 142/61, RESP 33. PATIENT INLINE AND ORAL SUCTIONED WITH COPIOUS AMOUNTS OF THICK TANNED SECRETIONS REMOVED FROM TUBE AND ORAL CAVITY. PATIENT REPOSITIONED ONTO RIGHT SIDE WITH PILLOWS PLACED BEHIND TORSO FOR SUPPORT AND UNDER AZALIA UPPER AND LOWER EXT. 1214 PATIENT REPOSITIONED ONTO SUPINE POSITION, SPO2 88-89%, RESPIRATORY AT BEDSIDE, FIO2 INCREASED TO 100% AT THIS TIME. 1310 NG TUBE AUSCULATED AND CONFIRMED PLACEMENT, 200ML OF FREE WATER ADMINISTERED VIA NG TUBE. 1419 PATIENT CONTINUES TO BITE ET TUBE AND OVERBREATH VENTILATOR. VERSED INCREASED TO 11ML/HR, SPO2 86%, HR 106, RATE 37, RESPIRATORY REMAINS AT BEDSIDE. PHYSICIAN NOTIFIED. RECEIVED NEW ORDER FOR MORPHINE 1MG X1 DOSE, NOTED AND CARRIED OUT. 1440 ABG ORDERED AND OBTAINED BY ALEXANDREA OF RT. 1550 EXTENSIVE MOUTH CARE PERFORMED, PATIENT TOLERATED WELL. 1207 PATIENT'S SPO2 DECREASED TO 74%
--- NOTE | 2021-02-21 23:27 | NUR ---
PATIENT HEEL ARE FLOATED WELL HER HIPS. PATIENT IS RESTING QUIETLY
--- NOTE | 2021-02-21 23:46 | NUR ---
PATIENTS FAMILY WAS GIVEN AN UPDATE ON THE PATIENTS CURRENT CONITION. PATIENT IS RESTING QUIETLY AND OXIGENATION IS 97%
[2021-02-22] VITALS (11 sets, daily range): BP systolic 110–143; BP diastolic 45–58; TEMP 98.5–100.3
--- NOTE | 2021-02-22 00:53 | NUR ---
PATIENT DEVELPOED A FEVER. THE PATIOENT WAS GIVEN IV TYEANOL AND COOL CLOTHS
[2021-02-22 04:04] LABS: PLATELET COUNT 119 K/uL (152-353)
[2021-02-22 04:28] LABS: POTASSIUM 4.8 mmol/L (3.6-5.2)
[2021-02-23 00:01] VITALS: BP 156/60; TEMP 99.5
[2021-02-23 01:00] VITALS: BP 168/16
--- NOTE | 2021-02-23 01:00 | NUR ---
NOTIFIED OF PATIENT 02 SATS DECREASING IN TO THE LOW 70'S AND PATIENT BITING DOWN ON ET TUBE. NEW ORDER GIVEN FOR VERCURONIUM TO INFUSE PER ICU PROTOCOL.
--- NOTE | 2021-02-23 01:34 | NUR ---
LATE ENTRY: AT 0030 PATIENT SUDDENLY BEGAN TO DESAT TO 86%. RESPIRTORY AT BEDSIDE AND PATIENT WAS SUCTIONED IN ORAL CAVITY. PATIENT HAD BIT DOWN ON HER TONGUE. A BITE BLOCK WAS INCERTED. PATIENT WAS DEEP INLINE SUCTIONED AND LAVAGED MULTIABLE TIMES. THINK MUCUS WAS SUCTIONE OUT. PATIENT WAS BAGGED BY RESPIRATORY. PATIENT GOT TO 69% O2. RESPIRATORY BAGGED THEN LAVAGED AGAIN ANDD PATIENT WAS TURNED. PATIENT SATURATIONS SLOWLY IMPROVED. AT 0100 ER DOCTOR WAS CALLEDD AND HE REORDERED THE VECURONIUM DRIP. PATIENTS BIT BLOCK WAS REMOVED. PATIENT WAS PUT ON 20 OF PEEP. PATIENTS BLOOD GAS WAS DRAWN AND A STAT CHEST X RAY WAS DRAWN. PATIENT O2 SAT IS NOW 92% 0150: THE PEEP IS BACK ON 12 PRESSURE CONTROL.
[2021-02-23 02:00] VITALS: BP 192/90
[2021-02-23 03:00] VITALS: BP 190/89
--- NOTE | 2021-02-23 03:30 | NUR ---
PATIENTS VERSAD WAS TITRATED TO 8ML PER HR AND FENTNYL WAS TITRATED TO 100 MCG PER HOUR TO REDUCE SEDATION AN PROMOTE BETTER OXIGENATION
[2021-02-23 04:00] VITALS: BP 129/54; TEMP 101
--- NOTE | 2021-02-23 04:42 | NUR ---
LATE ENTRY: PATIENT SPIKEDD A TEMP OF 102 AND PATIENT WAS GIVEN IV TYEANOL AND ICE WAS APPLIED
[2021-02-23 05:00] VITALS: BP 155/65; TEMP 100.6
[2021-02-23 05:10] LABS: POTASSIUM 4.6 mmol/L (3.6-5.2)
[2021-02-23 05:17] LABS: PLATELET COUNT 166 K/uL (152-353)
--- NOTE | 2021-02-23 05:45 | NUR ---
PATIENTS BLOOD PRESSURE 171/66. HYDRALAZINE 10MG GIVEN IV PUSH X1.
--- NOTE | 2021-02-23 06:19 | NUR ---
PATIENTS CURRENT TEMPERATURE 98.5 AXILLARY POST IV TYLENOL AND COOLING CLOTHS.
--- NOTE | 2021-02-23 07:45 | NUR ---
PT NOTED TO HAVE EDEMA TO LEFT SIDE OF FACE AND MECK UPON AM ASSESSMENT. SMALL AMT OF CREPITOUS FELT UNDER JAW AND ACROSS NECK. WILL INFORM MD OF FINDINGS.
--- NOTE | 2021-02-23 11:30 | NUR ---
DR. CAMPBELL AT BEDSIDE. PT'S BP NOTED TO BE 218/77 HR 77. REC'D ORDES TO GIVE PT HYDRALAZINE 20MG IV NOW PER DR. CAMPBELL.
--- NOTE | 2021-02-23 12:10 | NUR ---
DR CAMPBELL AT PT BEDSIDE WITH BOTH LINE PALLETIZER. VENT SETTINGS CHANGED TO SIMV-PC 26, RR-22, PEEP 8, PS-10, 80%. PT TOLERTING BETTER WITH LOWER PIP PRESSURES. SPO2 AT 92%. WILL CONTINUE TO MONITOR.
--- NOTE | 2021-02-23 12:28 | NUR ---
HR 127, , BP 286/103, 02 90 % ON VENT. AT BEDSIDE, NEW ORDER GIVEN FOR LABETALOL 20MG IV STAT. NEW ORDER GIVEN AND CARRIED OUT.
--- NOTE | 2021-02-23 12:54 | NUR ---
ZACK NEVAREZ D/C PER ORDERS
--- NOTE | 2021-02-23 13:02 | NUR ---
FEEDINGS D/C PER MD
--- NOTE | 2021-02-23 15:15 | NUR ---
PT'S BP REAMINS ELEVATED DESPITE PRN BP MEDS. DR CAMPBELL INFORMED AND NEW ORDERS REC'D TO START CARDIZEM DRIP PER PROTOCOL AT THIS TIME.
--- NOTE | 2021-02-23 15:30 | NUR ---
CHECKED PT'S NG TUBE FOR RESIDUAL. 50CC OF RESIDUAL NOTED AT THIS TIME. FREE WATER HELD AT THIS TIME. WILL CON'T TO MONITOR.
--- NOTE | 2021-02-23 15:50 | NUR ---
CARDIZEM INCREASED TO 10MM/HR BP 221/79.
--- NOTE | 2021-02-23 16:10 | NUR ---
BP 199/76 CARDIZEM INCREASED TO 15MG/HR. INFOMRED AND AWARE. NO NEW ORDERS AT THIS TIME.
--- NOTE | 2021-02-23 17:00 | NUR ---
NOTED THAT BREATHING WAS SHALLOW AND PT'S BP REMAINS ELEVATED AT 204/76 HR 95. PT REAMAINS ON CARDIZEM DRIP ALONG WITH VEC, VERSED AND FENTNYL. PUPILS NOTED TO BE PINPOINT NO REACTIONS NOTED. DR CAMPBELL INFOMRED AND INSTRUCTED TO CON'T TO USE LABETALOL AND HYDRALAZINE PRN ORDERED. ALSO NOTIFIED RESP OF CHANGES. PT SATS ON MONITOR 91% WITH HANDHELD PULSE OX SATS NOTED TO BE 86%. EDEMA TO FACE AND NECK (LEFT SIDE) NOTED TO HAVE DECREASED IN SIZE FROM AM ASSESSMENT. WILL CON'T TO MONITOR.
--- NOTE | 2021-02-23 17:15 | NUR ---
PT'S SON BANDAR CALLED DUE TO CHANGE IN PT'S CONDITION BY DR CAMPBELL. SON STATED TO MD "CAN I WAIT UNTIL TOMORROW AND COME?' DR CAMPBELL INFORMED HIM THERE WAS A CHANGE IN HIS MOTHERS CONDITION AND TOMORROW MAY BE TOO LATE. SON OPTED TO WAIT AND COME SEE HIS MOM UNTIL TOMORROW.
--- NOTE | 2021-02-23 18:00 | NUR ---
APENIC ALARM ON VENT ALARMING AT THIS TIME. RESP NOTIFIED ALONG WITH MD. PT NOTED TO HAVE AGONAL RESP. 180 DR CAMPBELL AT THE BS. ORDERS GIVEN FOR ABG. 1812 DR CAMPBELL ON PHONE WITH SON AT THIS TIME DISCUSSING ABG RESULTS.
--- NOTE | 2021-02-23 18:39 | NUR ---
BANDAR RETURNED CALL ASKED BY . BANDAR AND I SPOKE AND HE HAD HIS "COUSIN WHO WAS A RN ON THE LINE WITH US" AND HE ASKED AGAIN ABOUT HIS MOM'S BREATHING AND PUPILS. EXPLAINED TO HIM THAT NOTHING HAD CHANGED AT THIS TIME AND HER BREATHING WAS VERY SHALLOW DESPITE THE VENT AND PUPILS WERE STILL PINPOINT AND NO REACTIONS. I REMINDED HIM THAT PER THE MD HE COULD COME SEE HER AND HE STATED THAT HE WOULD COME IN LITTLE WHILE.
--- NOTE | 2021-02-23 20:10 | NUR ---
SHIFT ASSESSMENT COMPLETED. PATIENT IS SUPINE POSITION. CREPITUS NOTED AROUND FACE, NECK AND TORSO. PATIENT REMAINS ON SEDATION VERSED 5ML AND FENTANYL 50 MCG/MIN. CURRENT VENT SETTINGS TV 400 ML, RATE 25, PEEP 15, PS 12, FIO2 100%. ET TUBE 7.5; 21 AT THE LIP. 18F.NO TO BSC WITH NO URINE NOTED IN BAG. BED LOCKED IN LOW POSITION.
--- NOTE | 2021-02-23 20:35 | NUR ---
SO IS HERE AT THE BEDSIDE PER ORDER .
--- NOTE | 2021-02-23 21:00 | NUR ---
SHIFT ASSESSMENT COMPLETED. PATIENT NOTED WITH SHALLOW BREATHING AND ONLY ABDOMINAL BREATHS NOTED. CO2 MONITOR READING 70-80'S. PATIENT CONTINUES SEDATED ON VERSED AT 8 ML AND FENTANYL AT 100 MCG/HR.
--- NOTE | 2021-02-23 22:40 | NUR ---
SON HER TO SIGN DNR. AT THE BEDSIDE.
--- NOTE | 2021-02-23 22:45 | NUR ---
PATIENT NOTED WITH INCREASED RR-50'S ACCESSORY MUSCLE USE. ATIVAN 1MG AND MORPHINE 1 MG GIVEN IV PUSH. WILL REASSESS FOR DECREASE IN RR.
[2021-02-24] VITALS (7 sets, daily range): BP systolic 110–156; BP diastolic 56–73; TEMP 96.9–99.1
--- NOTE | 2021-02-24 00:18 | NUR ---
EXTENSIVE ORAL CARE DONE AND EYE CARE DONE AT THIS TIME.
--- NOTE | 2021-02-24 02:19 | NUR ---
PATIENT NOTED WITH LOOSE BOWEL MOVEMENT. PATIENT REPOSITIONED ON HER RIGHT SIDE AND BUTTOCKS CLEANED AND OPTOFORM APPLIED. PATIENTS EXTREMITIES ELEVATED ON PILLOWS.
--- NOTE | 2021-02-24 02:29 | NUR ---
MORPHINE 1 MG AND ATIVAN 1 MG GIVEN FOR INCREASED RR 55-60. HR-120'S.
--- NOTE | 2021-02-24 03:28 | NUR ---
IN LINE SUCTION DONE AND WITH LAVAGE AND SMALL AMOUNTS OF THICK GREEN MUCOUS NOTED.
--- NOTE | 2021-02-24 04:25 | NUR ---
PATIENTS FENTANYL DECREASED TO 50 MCG/HR AND VERSED DECREASED TO 5 ML/HR. PATIENT IS NOTED LESS RESPONSIVE AT THIS TIME. PATIENT WITH SHALLOW BREATHING AND NOT BUCKING VENT WHEN REPOSITIONING SIDE TO SIDE. WILL OBSERVE FOR ACTIVITY.
[2021-02-24 05:09] LABS: PLATELET COUNT 323 K/uL (152-353)
[2021-02-24 05:23] LABS: POTASSIUM 6.6 mmol/L (3.6-5.2)
--- NOTE | 2021-02-24 05:58 | NUR ---
CRITICAL LAB CALLED WBC 27.2 AND K+ 6.6.
--- NOTE | 2021-02-24 09:00 | NUR ---
SPOKE WITH PT'S SON BANDAR LARIOS AT HIS TIME. UPDATE GIVEN ALL QUESTIONS ANSWERED AT THIS TIME.
--- NOTE | 2021-02-24 20:10 | NUR ---
PROVIDED EXTENSIVE ORAL CARE TO PATIENT, PT INLINE SUCTIONED WITH COPIOUS AMOUNTS OF THICK WHITE SECRETIONS REMOVED. PATIENT'S ORAL CAVITY SUCTIONED WITH MODERATE AMOUNT OF THICK YELLOW TINGED SECRETIONS REMOVED. MOUTH MOISTURIZER APPLIED TO ORAL CAVITY AND LIPS. PT TOLERATED WELL.
--- NOTE | 2021-02-24 22:30 | NUR ---
EXTENSIVE MOUTH CARE PERFORMED ON PATIENT AND SUCTIONED WITH COPIOUS AMOUNTS OF THICK TANNED SECRETIONS REMOVED.
[2021-02-25] VITALS (24 sets, daily range): BP systolic 135–1338; BP diastolic 55–73; TEMP 97.9–100.1
--- NOTE | 2021-02-25 02:30 | NUR ---
PATIENT LAVAGED AND INLINE SUCTIONED AND ORAL CAVITY SUCTIONED WITH MODERATE AMOUNT OF THICK TANNED SECRETIONS REMOVED.
[2021-02-25 05:05] LABS: PLATELET COUNT 231 K/uL (152-353)
[2021-02-25 05:27] LABS: POTASSIUM 4.7 mmol/L (3.6-5.2)
--- NOTE | 2021-02-25 06:00 | NUR ---
PATIENT'S WEIGHT THIS MORNING INCLUDED 4 PILLOWS AN A SHEET.
--- NOTE | 2021-02-25 12:35 | NUR ---
UPDATE GIVEN TO PT'S SON BANDAR VIA TELEPHONE AT THIS TIME
--- NOTE | 2021-02-25 20:30 | NUR ---
PT WITH LESS THAN 3ML OF GASTRIC RESIDUAL FROM NG TUBE. PT POSITIONED IN HIGH FOWLERS AND GIVEN 100 ML OF FREE WATER VIA NG TUBE. NAD NOTED. WILL CONTINUE TO MONITOR.
[2021-02-26] VITALS (26 sets, daily range): BP systolic 142–210; BP diastolic 62–97; TEMP 96.4–97.9
--- NOTE | 2021-02-26 00:39 | NUR ---
MOUTH CARE GIVEN. PT'S MOUTH SWABBED WITH WATER AND MOUTH WASH. MOUTH MOISTURIZER APPLIED TO MOUTH AND LIPS. NAD NOTED.
--- NOTE | 2021-02-26 00:52 | NUR ---
PT RESTING IN HIGH FOWLERS WITH EYES CLOSED. NG TUBE INTACT AND PUT BACK ON LOW INTERMITTENT SUCTION. NAD NOTED. WILL CONTINUE TO MONITOR.
--- NOTE | 2021-02-26 03:37 | NUR ---
RESPIRATORY THERAPIST AT BEDSIDE PERFORMING VENT CHECK. PT STILL RESTING QUIETLY WITH EYES CLOSED. DRIPS STILL INFUSING. NAD NOTED. WILL CONTINUE TO MONITOR.
--- NOTE | 2021-02-26 04:30 | NUR ---
PT WITH LESS THAN 1 ML OF GASTRIC RESIDUAL. 100 ML OF FREE WATER GIVEN VIA NG TUBE. NAD NOTED.
[2021-02-26 06:24] LABS: POTASSIUM 5.1 mmol/L (3.6-5.2)
[2021-02-26 06:30] LABS: PLATELET COUNT 271 K/uL (152-353)
--- NOTE | 2021-02-26 07:20 | NUR ---
RESPIRATORY THERAPY HERE DOING RESP TREATMENT. Pt. RESTING IN BED RECTAL TUBE INTACT DRAINING STOOL. VENT SETTING FIO2 100%, SIMV - PC, PEEP - 10, PRESSURE SUP - 10, RATE - 25.
--- NOTE | 2021-02-26 09:10 | NUR ---
MOUTH CARE AND SUCTION DONE VIA DARIUS ROBERT LPN.
--- NOTE | 2021-02-26 11:00 | NUR ---
Pt. HAS EDEMA AZALIA EXTREMITIES, FACE AND NECK. SUCTION AND MOUTH CARE DONE. 100 CC FREE GIVEN Q4HRS.
--- NOTE | 2021-02-26 11:07 | NUR ---
ADJUST SETTING TO SIMV 400VT RR 25 TO HELP DECREASE CO2. DR JAQUEZ AT BEDSIDE. FOR CHANGES WILL CONTINUE TO MONITOR. SOP2 96% HR 99 .
--- NOTE | 2021-02-26 11:14 | NUR ---
DR. CAMPBELL HERE TO VISIT. LABETALOL 20MG GIVE IV FOR ELEVATED BP153/71.
--- NOTE | 2021-02-26 12:05 | NUR ---
SUCTION TO NG TUBE STOPPED AT THIS TIME. NG TUB ASSESSED AND CONFIRMED PLACEMENT OF TUBE BY AUSCULTATION, NO RESIDUAL NOTED, ADMINISTERED 100ML OF FREE WATER VIA NG TUBE. PATIENT TOLERATED WELL.
--- NOTE | 2021-02-26 13:00 | NUR ---
MOUTH CARE AND SUCTIONING DONE.
--- NOTE | 2021-02-26 13:10 | NUR ---
RESUMED SUCTION TO NG TUBE WITHOUT DIFFICULTY.
--- NOTE | 2021-02-26 13:42 | NUR ---
HYDRALAZINE 20MG GIVEN IV FOR BLOOD PRESSURE.
--- NOTE | 2021-02-26 14:11 | NUR ---
BP 176/83 LABETALOL 20MG GIVEN IV. Pt. RESTING IN BED.
--- NOTE | 2021-02-26 16:05 | NUR ---
SUCTION TO NG TUBE D/C'D AT THIS TIME. NG TUBE PLACEMENT CONFIRMED BY AUSCULTATION, NO RESIDUAL NOTED, 100ML OF FREE WATER ADMINISTERED VIA NG TUBE WITHOUT DIFFICULTY.
--- NOTE | 2021-02-26 16:20 | NUR ---
MOUTH CARE AND SUCTIONING DONE. LABETALOL 20MG GIVEN IV.
--- NOTE | 2021-02-26 17:35 | NUR ---
NOTIFIED DR. CAMPBELL URINE OUTPUT OF 50CC AND EDEMA WORSE IN NECK. NEW ORDERS RECEIVED.
--- NOTE | 2021-02-26 17:48 | NUR ---
NOTIFIED DR. ADRIAN LEON TO UPPER CHEST AND NECK. NO NEW ORDERS.
--- NOTE | 2021-02-26 20:10 | NUR ---
SHIFT ASSESSMENT COMPLETE. PATIENT NOTED WITH LEFT UPPER PICC LINE. CREPITUS NOTED TO FACE, NECK AND UPPER TORSO. 18F.NO CATHETER PRESENT TO BSC WITH HUMBERTO URINE AND SEDIMENT. VENT SETTINGS FOLLOWED: TV 400 M, RATE 25, PEEP 15, PS 12, FIO2 100%.
--- NOTE | 2021-02-26 22:06 | NUR ---
HYDRALAZINE 10 MG GIVEN FOR . WILL REASSESS FOR DECREASE BLOOD PRESSURE.
[2021-02-27] VITALS (7 sets, daily range): BP systolic 178–209; BP diastolic 62–71; TEMP 98
--- NOTE | 2021-02-27 02:14 | NUR ---
PATIENT NOTED WITH INCREASED BLOOD PRESSURE OF 198/75. PATIENT GIVEN LABETALOL 2 ML VIA PICC LINE. FENTANYL INCREASED TO 100 MCG/MIN. WILL MONITOR CLOSELY.
--- NOTE | 2021-02-27 04:55 | NUR ---
CARDIZEM STARTED FOR HIGH BLOOD PRESSURE 205/75. HR-77. LABETALOL 2ML GIVEN IV PUSH.
[2021-02-27 05:39] LABS: PLATELET COUNT 253 K/uL (152-353)
[2021-02-27 05:50] LABS: POTASSIUM 4.3 mmol/L (3.6-5.2)
--- NOTE | 2021-02-27 06:21 | NUR ---
SANCHEZ DAVIS ASSESMENT SENIOR BUSINESS PROCESS ANALYST AND OTHER NURSE NOTED DISTENTION OF THE LEFT SIDE OF THE LEFT LOWER QUADRANT. THE WAS MENTINON TO MD DUE TO LARGE AMOUNT OF SEDAMENT IN THE URINE. CATHITER WAS FLUSHED WITH 30MLS OF STERAL WATER AND THEN THE NO WAS RE-MATTRESS FILLING MACHINE TENDER, SOFT PESSURE APPLIED TO THE BLADDER AND 500 MLS CAME OUT. NO WAS CLAMPE AN 30 MINUTES LATER THE NO WAS UNCLAMPEDD AND 500 MORE MLS CAME OUT. PATIENT BLAER IS NO LONGER DISTENDED BUT SOFT
--- NOTE | 2021-02-27 06:25 | NUR ---
CRITICAL LAB REPORTED FOR HGB 6.8.
--- NOTE | 2021-02-27 07:13 | NUR ---
HYDRALAZINE 10 MG GIVEN IV PUSH FOR ELEVATED BLOOD PRESSURE OF 193/68
--- NOTE | 2021-02-27 08:20 | NUR ---
DR CAMPBELL NOTIFIED OF PT'S LABS HGB 6.8, ELEVATED BP WITH NEW CARDIZEM DRIP AT 7MG/HR. NEW ORDERS.
--- NOTE | 2021-02-27 08:33 | NUR ---
RESPIRATORY AT BEDSIDE ADMINISTERING BREATHING TX
--- NOTE | 2021-02-27 09:20 | NUR ---
TELEPHONE CONSENT FOR TRANSFUSION OF 2U PRBC OBTAINED FROM SON BANDAR. WITNESSED PER TATE CARVER RN & MYSELF. PT RESTING QUIETLY ON THE VENTSEDATED WITHFENTANYL AT 100MCG & VERSED AT 5ML. PT ON CARDIZEM DRIP AT 7MG/HR FOR ELEVATED BP. BP CUFF MOVED TO ARM .
--- NOTE | 2021-02-27 10:30 | NUR ---
DR PARK SURGEON WILL NOT BE ABLE TO DO TRACH ON PT TODAY TO EMERGENCY AT ANOTHER FACILITY, OPER TATE CARVER RN,JUNIOR NETWORK ADMINISTRATOR. DR CAMPBELL NOTIFIED.
--- NOTE | 2021-02-27 10:40 | NUR ---
DR CAMPBELL & DR ALEJANDRE IN TO SEE PT.
--- NOTE | 2021-02-27 11:15 | NUR ---
PT MEDICATED WITH ROCURONIUM PER SHAR PRESCOTT CRNA/ 'S ORDERS BEFORE ET TUBE EXCHANGE.
--- NOTE | 2021-02-27 11:27 | NUR ---
VICKI MYLES CHANGED TUBE AT 1115 WITH A 7.5 ET 21 AT THE LIP. CO2 HAD COLOR CHANGE FOR TUBE PLACEMENT TX TOLERATED WELL.
--- NOTE | 2021-02-27 11:30 | NUR ---
PT WITH NOTED SHELDON CARDIA RATE 48 BPM. MOTED COLOR CHANGE, DUSKY. PT BAGGED PER TATE CARVER RN. DR CAMPBELL ANOTIFIED. [address] IV[address] CAMPBELL HERE AT BS, DR VALERIA CARTER AT BS. PT IS DNR. 1133 ATROPINE 1 AMP, PT WITH PEA NOTED ON MONITOR. 1135 EPI 1 AMP IVP,CONTINUED BAGGING, COLOR VERY DUSKY. NO PULSE 1136 CALCIUM 1 AMP IVP. 1138 PT PRONOUNCED AT [address] CAMPBELL.
--- NOTE | 2021-02-27 11:30 | NUR ---
RT ALEXANDREA LEON AT BS, VICKI PRESCOTT AT BS WITH SOCIAL ECONOMIST TATE LOCKE & DR CAMPBELL AT BS. HR 100, NSR. ET TUBE EXCHANGE IN PROGRESS PER SHAR PRESCOTT CRNA.
--- NOTE | 2021-02-27 11:38 | NUR ---
NOTED TIME DIFFERENCE WITH CERAMIC DESIGNER & ACTUAL TIME OF 14 MINUTES, DR CAMPBELL NOTIFIED.
--- NOTE | 2021-02-27 12:08 | NUR ---
[facility]. PT NOT SUITABLE PER HILDA. REFERENCE # [id number]
--- NOTE | 2021-02-27 12:08 | NUR ---
DR CAMPBELL TALKING WITH SON.
--- NOTE | 2021-02-27 12:51 | NUR ---
SON BANDAR CALLED & REQUESTED [facility]. SON REQUESTED PT'S BELONGINGS SENT TO HOME. CELL PHONE & CLOTHES.
--- NOTE | 2021-02-27 13:40 | NUR ---
BODY RELEASED TO [facility].
== END 2021-02-27 13:40 | disposition expired | DRG 207 ==
LOC: ED 01:45 → MED/SURG 03:40 → ICU 03:40
PROVIDERS: Emergency Medicine; Internal Medicine; ADMIT Internal Medicine Endocrinology, Diabetes & Metabolism; ATTEND Internal Medicine Endocrinology, Diabetes & Metabolism
PROC: 5A1955Z Respiratory Ventilation, Greater than 96 Consecutive Hours (ICD-10-PCS; 2021-02-09)
PROC: 02HV33Z Insertion of Infusion Device into Superior Vena Cava, Percutaneous Approach (ICD-10-PCS; 2021-02-09)
PROC: 0BH17EZ Insertion of Endotracheal Airway into Trachea, Via Natural or Artificial Opening (ICD-10-PCS; 2021-02-09)
PROC: 30233K1 Transfusion of Nonautologous Frozen Plasma into Peripheral Vein, Percutaneous Approach (ICD-10-PCS; principal; 2021-02-12)
DX: U07.1 COVID-19 (principal); J96.01 Acute respiratory failure with hypoxia; E87.0 Hyperosmolality and hypernatremia; N17.8 Other acute kidney failure; B37.89 Other sites of candidiasis; E11.40 Type 2 diabetes mellitus with diabetic neuropathy, unspecified; I10 Essential (primary) hypertension; F41.8 Other specified anxiety disorders; E78.49 Other hyperlipidemia; G47.09 Other insomnia; I95.89 Other hypotension; R00.0 Tachycardia, unspecified; E87.5 Hyperkalemia; D72.828 Other elevated white blood cell count; I46.9 Cardiac arrest, cause unspecified; J98.2 Interstitial emphysema
CPT/HCPCS: 36415; 36569; 36600; 80048; 80053; 80061; 80202; 81000; 82550; 82805; 82947; 83880; 84295; 84484; 85027; 85379; 85610; 85730; 86850; 86900; 86901; 86922; 87040; 87077; 87088; 87205; 87635; 93005; 94002; 94003; 94640; 94660; 94664; 94760; 96374; 99284; C1751; C1768; J0132; J0171; J0360; J0456; J0461; J1100; J1265; J1335; J1450; J1650; J1815; J1940; J2250; J2270; J2543; J2920; J3370; J3490; P9017; P9047; U0003